=== PATIENT | female | born 2000 | race Caucasian/White ===

== ENCOUNTER 2022-11-25 14:38 | Inpatient (IN) | payer BC, SELFPAY ==
[2022-11-25 14:43] VITALS: BP 127/83; PULSE 81; RESP 16; TEMP 35.7; O2SAT 97; BMI 23.2
--- NOTE | 2022-11-25 14:49 | ED.GENADULT ---
HPI - General Adult General Chief complaint: Psychiatric Symptoms Stated complaint: SI crisis Time Seen by Provider: 11/25/22 15:20 Source: patient Limitations: no limitations History of Present Illness HPI narrative: 22-year-old female with history of psychiatric disorder presents with suicidal ideation and self-harming behavior. Patient was recently discharged for procedure on her neck as post be on Augmentin twice daily. She got home yesterday. Mother of the household noted that she had some self-harming behavior which is cutting on her arm and was concerned about the situation. She admitted to some passive suicidal ideation with no plan. Patient does offer some concern about her impulsivity. She does have a history of substance abuse but nothing actively. Patient describes her symptoms as moderate nature. There is no clear relieving or exacerbating features. Again patient offers passive suicidal ideation with no plan. She has no homicidal ideation. Related Data Home Medications Medication Instructions Recorded Confirmed No Known Home Meds 11/25/22 11/25/22 Allergies Allergy/AdvReac Type Severity Reaction Status Date / Time No Known Allergies Allergy Unverified 01/13/20 18:36 Review of Systems Review of Systems: CONSTITUTIONAL: Denies weight loss, fever and chills. HEENT: Denies changes in vision and hearing. RESPIRATORY: Denies SOB and cough. CV: Denies palpitations no CP. GI: Denies abdominal pain, nausea, vomiting and diarrhea. : Denies dysuria and urinary frequency. MSK: Denies myalgia and joint pain. SKIN: Denies rash and pruritus. NEUROLOGICAL: Denies headache and syncope. PSYCHIATRIC: Denies recent changes in mood. Denies anxiety and depression. All other ROS are negative unless in HPI Physical Exam ED Vital Signs: Vital Signs - 24 hr 11/25/22 14:43 Temperature 96.3 F L Pulse Rate 81 Respiratory Rate 16 Blood Pressure 127/83 Pulse Oximetry 97 BMI result Body Mass Index 23.2 GEN: Well developed, no acute distress, alert, oriented HEENT: Normocephalic, atraumatic, normal external ears, nose appears normal Eyes: Normal to appearance Neck: Supple, no lymphadenopathy Respiratory: Talks in complete sentences, no respiratory distress Extremities: No clubbing cyanosis or edema Neurologic: No focal neurologic deficits, cranial nerves 2-12 intact, gait normal Skin: No rash Course Course Course Narrative: This is an RME: Additional HPI, ROS, PE not included below will be deferred to primary provider. 22-year-old female presents with suicidal thoughts for her entire life, worsening over the past few days, no particular plan. Patient has been cutting her left wrist. Has superficial lacerations to left wrist. Denies hallucinations. Denies drugs, alcohol tobacco. Here with a friend Physical exam with superficial lacerations to left upper extremities. Plan med clearance Reevaluation(s) Reevaluation #1: The patient is awaiting medical clearance at this time. Some of her lab work is still pending. I have ordered her Augmentin twice daily. I will sign the patient out to my colleague for further monitoring pending a disposition by our care team. Time: 16:31 Medical Decision Making Medical Decision Making MDM Narrative: 22-year-old female presents for psychiatric evaluation. Patient has suicidal ideation without a plan. She has initiated self harming behavior namely cutting of her left arm. She does offer concerns about her impulsivity. Patient will need to be medically cleared followed by psychiatric evaluation. Differential diagnosis includes mood disorder, psychosis, schizoaffective disorder, schizophrenia, depression, anxiety, mood disorder, personality disorder. Differential Diagnosis Differential Diagnoses: The differential diagnosis associated with the presentation includes (See above) Admission/Observation Consideration of admission/observation: Escalation of care including admission/observation considered Lab Data 11/25/22 16:03 11/25/22 16:03 Labs: Lab Results 11/25/22 11/25/22 11/25/22 Range/Units 15:42 15:42 15:42 WBC (4.8-10.8) X10*3/uL RBC (4.20-5.50) X10*6/uL Hgb (12.0-16.0) g/dl Hct (37.0-47.0) % MCV (80.0-98.0) fL MCH (27.0-33.0) pg MCHC (31.0-35.0) g/dl RDW (11.0-16.0) % Plt Count (160-400) X10*3/uL MPV (9.4-12.3) fL Immature Gran % (Auto) (0.0-0.4) % Neut % (Auto) (45-73) % Lymph % (Auto) (20-40) % Antelope % (Auto) (2-11) % Eos % (Auto) (0-4) % Baso % (Auto) (0-2) % Lymph # (Auto) (1.2-4.9) X10*3/uL Antelope # (Auto) (0.1-1.2) X10*3/uL Eos # (Auto) (0.0-0.4) X10*3/uL Baso # (Auto) (0.0-0.2) X10*3/uL Abs Immat Gran (auto) (0.00-0.03) X10*3/uL Absolute Neuts (auto) (2.0-8.3) x10*3/uL Absolute Nucleated RBC (0.0-0.012) X10*3/uL Nucleated RBC % (auto) (0.0-0.2) /100WBC Urine Color Yellow Urine Appearance Cloudy Urine pH 7.5 (5.0-9.0) Ur Specific [place] 1.020 (1.005-1.025) Urine Protein Negative (Neg-Trace) mg/dL Urine Glucose (UA) Negative (Negative) mg/dL Urine Ketones Negative (Negative) mg/dL Urine Blood Negative (Negative) Urine Nitrite Negative (Negative) Ur Leukocyte Esterase Negative (Negative) Urine Test NEGATIVE (NEGATIVE) Urine Opiates Screen Not Detected (Not Detect) Urine Fentanyl Screen Not Detected (Not Detect) Ur Barbiturates Screen Not Detected (Not Detect) Ur Phencyclidine Scrn Not Detected (Not Detect) Ur Amphetamines Screen Not Detected (Not Detect) U Benzodiazepines Scrn Not Detected (Not Detect) Urine Cocaine Screen Not Detected (Not Detect) U Marijuana (THC) Screen POSITIVE H (Not Detect) 11/25/22 Range/Units 16:03 WBC 12.5 H (4.8-10.8) X10*3/uL RBC 4.54 (4.20-5.50) X10*6/uL Hgb 12.7 (12.0-16.0) g/dl Hct 40.5 (37.0-47.0) % MCV 89.2 (80.0-98.0) fL MCH 28.0 (27.0-33.0) pg MCHC 31.4 (31.0-35.0) g/dl RDW 13.2 (11.0-16.0) % Plt Count 365 (160-400) X10*3/uL MPV 9.0 L (9.4-12.3) fL Immature Gran % (Auto) 0.5 H (0.0-0.4) % Neut % (Auto) 77.5 H (45-73) % Lymph % (Auto) 17.8 L (20-40) % Antelope % (Auto) 2.9 (2-11) % Eos % (Auto) 0.8 (0-4) % Baso % (Auto) 0.5 (0-2) % Lymph # (Auto) 2.2 (1.2-4.9) X10*3/uL Antelope # (Auto) 0.4 (0.1-1.2) X10*3/uL Eos # (Auto) 0.1 (0.0-0.4) X10*3/uL Baso # (Auto) 0.1 (0.0-0.2) X10*3/uL Abs Immat Gran (auto) 0.06 H (0.00-0.03) X10*3/uL Absolute Neuts (auto) 9.7 H (2.0-8.3) x10*3/uL Absolute Nucleated RBC 0.000 (0.0-0.012) X10*3/uL Nucleated RBC % (auto) 0.0 (0.0-0.2) /100WBC Urine Color Urine Appearance Urine pH (5.0-9.0) Ur Specific [place] (1.005-1.025) Urine Protein (Neg-Trace) mg/dL Urine Glucose (UA) (Negative) mg/dL Urine Ketones (Negative) mg/dL Urine Blood (Negative) Urine Nitrite (Negative) Ur Leukocyte Esterase (Negative) Urine Test (NEGATIVE) Urine Opiates Screen (Not Detect) Urine Fentanyl Screen (Not Detect) Ur Barbiturates Screen (Not Detect) Ur Phencyclidine Scrn (Not Detect) Ur Amphetamines Screen (Not Detect) U Benzodiazepines Scrn (Not Detect) Urine Cocaine Screen (Not Detect) U Marijuana (THC) Screen (Not Detect) Prescription Management I considered prescription management with: Antibiotic Discharge Plan Discharge Clinical Impression: Suicidal ideation, Self-inflicted laceration of wrist Patient Disposition: Still a Patient Prescriptions: No Action No Known Home Meds Interventions: [place]-Suicide Risk Severity Scale Last Done: 11/25/22 16:16
--- NOTE | 2022-11-25 15:48 | MHC.CARE ---
Pt was seen by [facility] and is a inpatient bedsearch
[2022-11-25 15:54] LABS: Appearance Urine Cloudy; Color Urine Yellow; Glucose Urine UA Negative (Negative); Leukocyte Esterase Urine Negative (Negative); Nitrite Urine Negative (Negative); PH 7.5 (5.0-9.0); Urine Blood Negative (Negative); Urine Ketones Negative (Negative); Urine Protein Negative (Neg-Trace)
[2022-11-25 15:55] LABS: UPreg QC Valid YES; Urine Pregnancy NEGATIVE (NEGATIVE)
[2022-11-25 16:02] LABS: Amphetamine Screen Urine Not Detected (Not Detect); Barbiturates, Urine Not Detected (Not Detect); Benzodiazepines Screen Urine Not Detected (Not Detect); Cannabinoid Screen Urine POSITIVE (Not Detect); Cocaine Screen Urine Not Detected (Not Detect); Fentanyl, urine Not Detected (Not Detect); Opiate Screen Urine Not Detected (Not Detect); Phencyclidine Screen Urine Not Detected (Not Detect)
[2022-11-25 16:10] LABS: MANUAL DIFF FLAG NO
[2022-11-25 16:12] LABS: Basophils Absolute Auto 0.1 X10*3/uL (0.0-0.2); Basophils Percent Auto 0.5 % (0-2); Eosinophils Absolute Auto 0.1 X10*3/uL (0.0-0.4); Eosinophils Percent Auto 0.8 % (0-4); Hematocrit 40.5 % (37.0-47.0); Hemoglobin 12.7 g/dl (12.0-16.0); Imm Gran Abs Auto 0.06 X10*3/uL (0.00-0.03); Imm Gran Pct Auto 0.5 % (0.0-0.4); Lymphocytes Absolute Auto 2.2 X10*3/uL (1.2-4.9); Lymphocytes Percent Auto 17.8 % (20-40); Mean Corpuscular HGB Conc 31.4 g/dl (31.0-35.0); Mean Corpuscular Volume 89.2 fL (80.0-98.0); Monocytes Absolute Auto 0.4 X10*3/uL (0.1-1.2); Monocytes Percent Auto 2.9 % (2-11); Neutrophils Absolute Auto 9.7 x10*3/uL (2.0-8.3); Neutrophils Percent Auto 77.5 % (45-73); Platelet Count 365 X10*3/uL (160-400); Red Blood Count 4.54 X10*6/uL (4.20-5.50); Red Cell Distribution Width 13.2 % (11.0-16.0); White Blood Count 12.5 X10*3/uL (4.8-10.8)
[2022-11-25] MEDS: Diphth,Pertus(ACell),Tet Adult 0.5 ML SYRINGE IM (16:28)
[2022-11-25 16:33] LABS: Ethanol < 10 mg/dL
[2022-11-25 16:34] LABS: Alanine Aminotransferase 18 U/L (0-31); Albumin Level 4.4 g/dL (3.5-5.0); Alkaline Phosphatase 93 U/L (39-117); Anion Gap 15 (12-20); Aspartate Amino Transferase 17 U/L (5-31); Bilirubin Total 0.6 mg/dL (0.0-1.0); Blood Urea Nitrogen 18 mg/dL (9-16); Calcium 10.3 mg/dL (8.4-10.2); Carbon Dioxide 25 mmol/L (22-29); Chloride 105 mmol/L (96-108); Creatinine Clr Calc Pharmacy 87.9; Estimated Glomerular Filt Rate > 60; Glucose Random 87 mg/dL (60-115); Magnesium 2.1 mg/dL (1.6-2.6); Potassium 4.4 mmol/L (3.3-5.1); Sodium 141 mmol/L (135-145); Total Protein 8.1 g/dL (6.5-8.0)
[2022-11-25 16:37] LABS: Acetaminophen LAB < 17 mcg/mL (<30); Salicylate < 5.0 mg/dL (15-30)
--- OUTSIDE RECORDS SUMMARY | 2022-11-25 16:42 | XMS_ITS | Continuity of Care Document ---
Author Name Unknown Address [address] [place] [address] Phone [facility] Address [address] [place] [address] Phone Care Team Providers Care Home Service Advisor Name Role Phone Pcp-MD Magdalena Traylor Primary Care Provider Unavailabl e Hospitalist, Model (IS ONLY) Emergency Provider Unavailable MD Andrews Bates Attending Provider MD Santy, Yolis Other Provider Unavailable Chief Complaint and Reason for Visit Chief Complaint SIALAODENITIS ON THE LEFT Reason for Visit Abscess Sialadenitis Streptococcal pharyngitis Suppurative lymphadenitis Allergies, Adverse Reactions, Alerts Allergen Type Severity Reaction Last Updated Verified Status latex Allergy Rash November 09, 2022 4:19pm Yes A ctive Social History Smoking Status Status Start Date End Date Date of Observa tion Unknown if ever smoked November 10, 2022 9:38am Observation Status Date of Observation Not November 09, 2022 Additional Data Assigned Sex Female Problems Active Problems Medical Problem Onset Date Status Suppurative lymphadenitis Active Abscess Active Sialadenitis Active Streptococcal pharyngitis Active Medications No known medications Procedures Procedure Date Performed Status CT facial bones w contrast November 09, 2022 4:52p m active Blood Culture active Group A Streptococcus DNA Detection completed Relevant Diagnostic Tests and/or Laboratory Data Laboratory Results Test Date/Time Result Interpretation Reference Range Result Comment Performing Site White Blood Count November 10, 2022 6:45am 20.6 X10 3/uL 4.5-11.0 [facility] [id number] [address] [place] [address] 61796 Red Blood Count November 10, 2022 6:45am 4.55 X10 6/uL 3.70-5.00 [facility] [id number] [address] [place] [address] 03536 Hemoglobin November 10, 2022 6:45am 13.3 g/dl 11.0-16.0 [facility] [id number] [address] [place] [address] 15075 Hematocrit November 10, 2022 6:45am 41.4 % 34.0-45.0 [facility] [id number] [address] [place] [address] 31928 Mean Corpuscular Volume November 10, 2022 6:45am 91.0 fl 80.0-100.0 [facility] [id number] [address] [place] [address] 96188 Mean Corpuscular Hemoglobin November 10, 2022 6:45am 29.2 pg 27.0-34.0 [facility] [id number] [address] [place] [address] 68480 Mean Corpuscular Hemoglobin Concent November 10, 2022 6:45am 32.1 g/dl 31.0-36.0 [facility] [id number] [address] [place] [address] 16968 Red Cell Distribution Width November 10, 2022 6:45am 13.3 % 11.5-15.0 [facility] [id number] [address] [place] [address] 26029 Platelet Count November 10, 2022 6:45am 278 X10 3/uL 150-400 [facility] [id number] [address] [place] [address] 31707 Immature Granulocyte % (Auto) November 10, 2022 6:45am 0.6 % [facility] [id number] [address] [place] [address] 81825 Neutrophils (%) (Auto) November 10, 2022 6:45am 93.6 % [facility] [id number] [address] [place] [address] 59495 Lymphocytes (%) (Auto) November 10, 2022 6:45am 2.9 % [place] [id number] [address] [place] [address] 28831 Monocytes (%) (Auto) November 10, 2022 6:45am 2.7 % [place] [id number] [address] [place] [address] 24104 Eosinophils (%) (Auto) November 10, 2022 6:45am 0.0 % [address] [place] [address] 37550 Basophils (%) (Auto) November 10, 2022 6:45am 0.2 % [place] [id number] [place] [address] 59903 Immature Granulocyte # (Auto) November 10, 2022 6:45am 0.13 X10 3/uL 0.00-0.09 [address] [place] [address] 90945 Neutrophils # (Auto) November 10, 2022 6:45am 19.3 X10 3/uL 1.5-7.8 [place] [id number] [address] [place] [address] 02679 Lymphocytes # (Auto) November 10, 2022 6:45am 0.6 X10 3/uL 1.0-4.8 [place] [id number] [address] [place] [address] 50722 Monocytes # (Auto) November 10, 2022 6:45am 0.6 X10 3/uL 0.0-0.8 [place] [id number] [address] [place] [address] 98701 Eosinophils # (Auto) November 10, 2022 6:45am 0.0 X10 3/uL 0.0-0.5 [place] [id number] [place] [address] 23150 Basophils # (Auto) November 10, 2022 6:45am 0.0 X10 3/uL 0.0-0.2 [place] [id number] [address] [place] [address] 25441 Nucleated Red Blood Cells % November 10, 2022 6:45am 0.1 /100 WBC 0.0-0.0 WBC corrected due to NRBC [facility] [id number] [address] [place] [address] 85911 Prothrombin Time November 09, 2022 5:13pm 10.5 Seconds 9.3-12.1 [facility] [id number] [address] [place] [address] 53090 Prothromb Time International Ratio November 09, 2022 5:13pm 1.0 0.9-1.2 Reference Interval is for non-anticoagul ated patients.Sugge sted INR Therapeutic Range for Vitamin K antogonist therapy:LEVELS OF THERAPY INDICATIONS TARGET INR RANGEStandard Dose Venous Thrombosis, 2.0 - 3.0 Atrial Fibrillation, Pulmonary Embolism. High Dose Valvular Heart Disease, 2.5 - 3.5 Mechanical Heart, Intracardiac Thrombosis. [facility] [id number] [address] [place] [address] 31880 Sodium Level November 10, 2022 6:45am 138 mmol/L 137-146 [facility] [id number] [address] [place] [address] 00823 Potassium Level November 10, 2022 6:45am 3.8 mmol/L 3.5-5.3 [facility] [id number] [address] [place] [address] 04756 Chloride Level November 10, 2022 6:45am 103 mmol/L 98-107 [facility] [id number] [address] [place] [address] 45490 Carbon Dioxide Level November 10, 2022 6:45am 21 mmol/L - [facility] [id number] [address] [place] [address] 94015 Anion Gap November 10, 2022 6:45am 14 mmol/L 09-09 [facility] [id number] [address] [place] [address] 21309 Blood Urea Nitrogen November 10, 2022 6:45am 9 mg/dl 09-19 [facility] [id number] [address] [place] [address] 81873 Creatinine November 10, 2022 6:45am 0.6 mg/dL 0.5-1.1 [facility] [id number] [address] [place] [address] 24434 Estimated Creatinine Clearance November 10, 2022 6:45am 114.3 ml/min This value is calculated by Cockcroft Gault Equation using ideal body weight. This result is dependent on an accurate patient height and weight which is obtained from patients medical record. Jareth Mcmahon. and M.H. Dena. Prediction of creatinine clearance from serum creatinine. Nephron. 1976. 16(1):31-41. [facility] [id number] [address] [place] [address] 87820 Estimat Glomerular Filtration Rate November 10, 2022 6:45am 128 >90 Reported eGFR is based on the CKD-EPI 2020 equation that does not use a race coefficient. Additional information can be found at:[id number]_ [email or web address] ([email or web address]) [facility] [id number] [address] [place] [address] 13147 BUN/Creatinine Ratio November 10, 2022 6:45am 15.0 10.0-20.0 [facility] [id number] [address] [place] [address] 21307 Glucose Level November 10, 2022 6:45am 120 mg/dL 70-100 [facility] [id number] [address] [place] [address] 50195 Lactic Acid Level November 09, 2022 5:13pm 1.0 mmol/L >0.5 [facility] [id number] [address] [place] [address] 18845 Calcium Level November 10, 2022 6:45am 9.4 mg/dl 8.6-10.3 [facility] [id number] [address] [place] [address] 62094 Total Bilirubin November 09, 2022 5:13pm 0.9 mg/dl <1.1 [place] [id number] [address] [place] [address] 21963 Aspartate Amino Transf (AST/SGOT) November 09, 2022 5:13pm 17 U/L 15-41 [facility] [id number] [address] [place] [address] 52728 Alanine Aminotransferase (ALT/SGPT) November 09, 2022 5:13pm 12 U/L 14-54 [facility] [id number] [address] [place] [address] 43713 Total Protein November 09, 2022 5:13pm 8.6 g/dL 6.4-8.3 [facility] [id number] [address] [place] [address] 86999 Albumin November 09, 2022 5:13pm 4.9 g/dl 4.0-5.0 [facility] [id number] [address] [place] [address] 86217 Albumin/Globulin Ratio November 09, 2022 5:13pm 1.3 1.0-2.6 [facility] [id number] [address] [place] [address] 36619 Alkaline Phosphatase November 09, 2022 5:13pm 109 U/L 35-104 [facility] [id number] [address] [place] [address] 76305 Human Chor Gonadotropin, Qual (Ser) November 09, 2022 5:13pm Negative Negative This is only a screening test. Low HCG serum level (<10 mIU/ml), in cases of early or hemodilution by over hydration, may not be detected with this test. Also high concentration of certain drugs may interfere. If suspicious of early or clinically necessary to confirm, a serum Beta-HCG quantitation test is suggested. [facility] [id number] [address] [place] [address] 73474 Microbiology Results Procedure Source Result Collection Date/Time Result Date/Time Result Comment Performing Site Group A Streptococcus DNA Detection Throat November 09, 2022 5:20pm [facility] [id number] [address] [place] [address] 21433 Vital Signs Vital Reading Result Reference Range Collection Date/Time Height 157.48 cm November 09, 2022 4:20pm Weight 56.24 kg November 09, 2022 4:20pm Body Temperature 97.8 [degF] 97.6-99.6 November 10, 2022 4:11pm Heart Rate 93 /min 60-90 November 10, 2022 4:11pm Respiratory rate 18 /min 12-24 November 10, 2022 4:11pm Oxygen saturation by Pulse oximetry 100 % 95-100 November 10, 2022 4:11 pm BP Systolic 107 mm[Hg] 90-140 November 10, 2022 4:11pm BP Diastolic 60 mm[Hg] 60-90 November 10, 2022 4:11pm BMI (Body Mass Index) 22.7 kg/m2 October 262022 4:20pm Advance Directives Advance Directive Response Recorded Date/ Time Advance Directives No November 09 6:17pm Health Care Proxy No November 09 6:17pm Insurance Providers Guarantor RAJEEV CRAVEN Address [address] [place] [address] Contact Info. Home Phone: Payer Policy Id Coverage Id Subscriber's Name Subscriber Id Effective Date Expiration Date [facility] (Medicaid) [id number] RAJEEV CRAVEN [id number] [facility] Required [id number] RAJEEV CRAVEN [id number] Encounters Encounter Location(s) Arrival/Admit Date Discharge/Depart Date Provider(s) Admitted Inpatient [facility] Inpatient November 10, 2022 4:44am Andrews Bates MD Recent Diagnosis Onset Date Abscess Sialadenitis Streptococcal pharyngitis Suppurative lymphadenitis Assessments Diagnosis Onset Date Resolution Status Abscess acute Sialadenitis acute Streptococcal pharyngitis [place] Suppurative lymphadenitis [place] Plan of Treatment Future Tests Future scheduled test information is unavailable Pending Tests Test Name Ordered Date Scheduled Date CT facial bones w contrast November 09, 2022 4:52p m November 09, 2022 4:52pm MRSA Nares PCR November 10, 2022 7:09pm October 7:09pm Vancomycin,Trough November 10, 2022 7:07pm November 122022 6:00am VTE Risk Assessment Medical November 10, 2022 4:44 am November 10, 2022 4:44am Future Visits Future appointment information is unavailable Referrals to Other Providers Referral information is unavailable Future Procedures Procedure Name Ordered Date Scheduled Date Hospital Level of Care November 10, 2022 4:44am Ju ly 2022 4:44am Basic Metabolic Panel November 10, 2022 4:44am Vladimir y 2022 6:00am Complete Blood Count Auto Diff November 10, 2022 4 :44am November 11, 2022 6:00am Code Status November 10, 2022 4:44am October 4:44am Creatinine November 10, 2022 7:07pm October 6:00am Creatinine November 10, 2022 7:07pm October 6:00am Creatinine November 10, 2022 7:07pm October 6:00am ED Transfer of Care to Adm Physician November 10, 2022 5:00am November 10, 2022 5:00am ENT Consult November 10, 2022 4:53am October 4:53am Saline Lock Insert/Manage November 09, 2022 4:28pm November 09, 2022 4:28pm Patient Preference for Pain Management October 4:44am November 10, 2022 4:44am Sequential Compression Device November 10, 2022 4: 44am November 10, 2022 4:44am Future Medications Future medication information is unavailable Patient Instructions Patient instructions are unavailable
--- OUTSIDE RECORDS SUMMARY | 2022-11-25 16:42 | XMS_ITS | Continuity of Care Document ---
Author Name Unknown Address [address] [place] [address] Phone [facility] Address [address] [place] [address] Phone Care Team Providers Care Mental Health Orderly Name Role Phone Pcp-MD Manuel Traylor Primary Care Provider Unavailabl e Hospitalist, Model (IS ONLY) Emergency Provider Unavailable MD [place] Other Provider Unavailable MD Benjie Deal Attending Provider [phone] [facility] Provider Chief Complaint and Reason for Visit Chief Complaint SIALAODENITIS ON THE LEFT Reason for Visit Sialadenitis Streptococcal infection group A Streptococcal pharyngitis Suppurative lymphadenitis Allergies, Adverse Reactions, Alerts Allergen Type Severity Reaction Last Updated Verified Status latex Allergy Rash November 09, 2022 4:19pm Yes A ctive Social History Smoking Status Status Start Date End Date Date of Observa tion Unknown if ever smoked November 11, 2022 3:51pm Observation Status Date of Observation Not November 14, 2022 Observation Status Observation Response Date of Response Lives With Friend November 11, 2022 3:51pm Is Anyone Dependent on your Care? No November 10, 2022 8:55pm Living Situation Private Home November 10, 2022 8:55pm Additional Data Assigned Sex Female Problems Active Problems Medical Problem Onset Date Status Suppurative lymphadenitis Active Streptococcal infection group A Active Sialadenitis Active Streptococcal pharyngitis Active Medications Medication Status Dose Units Route Directions Qty Days St art Date End Date Instructions Amoxicillin-Po t Clavulanate (Augmentin) 500-125 mg Tablet Active 1 TAB PO EVERY 12 HOURS 28 14 November 18, 2022 12:00am Procedures Procedure Date Performed Status CT facial bones w contrast November 09, 2022 4:52p m completed US guide cyst aspiration November 11, 2022 11:41am completed CT facial bones w contrast November 14, 2022 12:51 pm completed Gram Stain completed Abscess Culture active Blood Culture completed Gram Stain completed Body Fluid Culture completed MRSA Screen completed Methicillin-Resist S. Aureus (PCR) cancelled Methicillin-Resist S. Aureus (PCR) cancelled Abscess I & D (Not Applicable) November 15, 2022 9 :19am completed Relevant Diagnostic Tests and/or Laboratory Data Laboratory Results Test Date/Time Result Interpretation Reference Range Result Comment Performing Site Add-On Test Request November 13, 2022 11:53am Added test [facility] [id number] [address] [place] [address] 27667 White Blood Count November 17, 2022 5:30am 8.7 X10 3/uL 4.5-11.0 [facility] [id number] [address] [place] [address] 75356 Red Blood Count November 17, 2022 5:30am 3.51 X10 6/uL 3.70-5.00 [facility] [id number] [address] [place] [address] 20110 Hemoglobin November 17, 2022 5:30am 10.0 g/dl 11.0-16.0 [facility] [id number] [address] [place] [address] 55520 Hematocrit November 17, 2022 5:30am 31.5 % 34.0-45.0 [facility] [id number] [address] [place] [address] 40870 Mean Corpuscular Volume November 17, 2022 5:30am 89.7 fl 80.0-100.0 [facility] [id number] [address] [place] [address] 18088 Mean Corpuscular Hemoglobin November 17, 2022 5:30am 28.5 pg 27.0-34.0 [facility] [id number] [address] [place] [address] 83480 Mean Corpuscular Hemoglobin Concent November 17, 2022 5:30am 31.7 g/dl 31.0-36.0 [facility] [id number] [address] [place] [address] 05924 Red Cell Distribution Width November 17, 2022 5:30am 12.4 % 11.5-15.0 [facility] [id number] [address] [place] [address] 01972 Platelet Count November 17, 2022 5:30am 322 X10 3/uL 150-400 [facility] [id number] [address] [place] [address] 69469 Immature Granulocyte % (Auto) November 17, 2022 5:30am 0.8 % [facility] [id number] [address] [place] [address] 41414 Neutrophils (%) (Auto) November 17, 2022 5:30am 61.6 % [facility] [id number] [address] [place] [address] 34399 Lymphocytes (%) (Auto) November 17, 2022 5:30am 26.0 % [facility] [id number] [address] [place] [address] 85549 Monocytes (%) (Auto) November 17, 2022 5:30am 7.8 % [facility] [id number] [address] [place] [address] 04601 Eosinophils (%) (Auto) November 17, 2022 5:30am 3.2 % [facility] [id number] [address] [place] [address] 32421 Basophils (%) (Auto) November 17, 2022 5:30am 0.6 % [facility] [id number] [address] [place] [address] 56787 Immature Granulocyte # (Auto) November 17, 2022 5:30am 0.07 X10 3/uL 0.00-0.09 [facility] [id number] [address] [place] [address] 35223 Neutrophils # (Auto) November 17, 2022 5:30am 5.4 X10 3/uL 1.5-7.8 [facility] [id number] [address] [place] [address] 44604 Lymphocytes # (Auto) November 17, 2022 5:30am 2.3 X10 3/uL 1.0-4.8 [place] [id number] [address] [place] [address] 20116 Monocytes # (Auto) November 17, 2022 5:30am 0.7 X10 3/uL 0.0-0.8 [place] [facility] [id number] [address] [place] [address] 51118 Eosinophils # (Auto) November 17, 2022 5:30am 0.3 X10 3/uL 0.0-0.[address] [facility] [id number] [place] [address] 90407 Basophils # (Auto) November 17, 2022 5:30am 0.1 X10 3/uL 0.0-0.2 [place] [facility] [id number] [address] [place] [address] 89973 Erythrocyte Sedimentation Rate November 16, 2022 5:20am 54 mm/hr 0-20 [place] [id number] [address] [place] [address] 61566 Nucleated Red Blood Cells % November 17, 2022 5:30am 0.0 /100 WBC 0.0-0.0 [facility] [id number] [address] [place] [address] 29570 Prothrombin Time November 09, 2022 5:13pm 10.5 Seconds 9.3-12.1 [facility] [id number] [address] [place] [address] 94470 Prothromb Time International Ratio November 09, 2022 5:13pm 1.0 0.9-1.2 Reference Interval is for non-anticoagul ated patients.Sugge sted INR Therapeutic Range for Vitamin K antogonist therapy:LEVELS OF THERAPY INDICATIONS TARGET INR RANGEStandard Dose Venous Thrombosis, 2.0 - 3.0 Atrial Fibrillation, Pulmonary Embolism. High Dose Valvular Heart Disease, 2.5 - 3.5 Mechanical Heart, Intracardiac Thrombosis. [facility] [id number] [address] [place] [address] 96496 Sodium Level November 17, 2022 5:30am 140 mmol/L 137-146 [place] [id number] [address] [place] [address] 90441 Potassium Level November 17, 2022 5:30am 4.0 mmol/L 3.5-5.3 [facility] [id number] [address] [place] [address] 60884 Chloride Level November 17, 2022 5:30am 104 mmol/L 98-107 [facility] [id number] [address] [place] [address] Carbon Dioxide Level November 17, 2022 5:30am 28 mmol/L -32 [facility] [id number] [address] [place] [address] 97022 Anion Gap November 17, 2022 5:30am 8 mmol/L - [place] [id number] [address] [place] [address] 13538 Blood Urea Nitrogen November 17, 2022 5:30am 4 mg/dl - [facility] [id number] [address] [place] [address] Creatinine November 17, 2022 5:30am 0.6 mg/dL 0.5-1.1 [facility] [id number] [address] [place] [address] 34904 Estimated Creatinine Clearance November 17, 2022 5:30am 114.3 ml/min This value is calculated by Cockcroft Gault Equation using ideal body weight. This result is dependent on an accurate patient height and weight which is obtained from patients medical record. Cockcroft, D.W. and M.H. Gault. Prediction of creatinine clearance from serum creatinine. Nephron. 1976. 16(1):31-41. [facility] [id number] [address] [place] [address] 00315 Estimat Glomerular Filtration Rate November 17, 2022 5:30am 128 >90 Reported eGFR is based on the CKD-EPI 2020 equation that does not use a race coefficient. Additional information can be found at:[id number]_ [email or web address] ([email or web address]) [facility] [id number] [address] [place] [address] 54044 BUN/Creatinine Ratio November 17, 2022 5:30am 6.7 10.0-20.0 [facility] [id number] [address] [place] [address] 80553 Glucose Level November 17, 2022 5:30am 76 mg/dL 70-100 [facility] [id number] [address] [place] [address] 84420 Lactic Acid Level November 09, 2022 5:13pm 1.0 mmol/L >0.5 [facility] [id number] [address] [place] [address] 59916 Calcium Level November 17, 2022 5:30am 8.9 mg/dl 8.6-10.3 [facility] [id number] [address] [place] [address] 92549 Magnesium Level November 17, 2022 5:30am 1.8 mg/dL 1.8-2.5 [facility] [id number] [address] [place] [address] 06241 Total Bilirubin November 09, 2022 5:13pm 0.9 mg/dl <1.1 [facility] [id number] [address] [place] [address] 63528 Aspartate Amino Transf (AST/SGOT) November 09, 2022 5:13pm 17 U/L 15-41 [facility] [id number] [address] [place] [address] 86505 Alanine Aminotransferase (ALT/SGPT) November 09, 2022 5:13pm 12 U/L 14-54 [facility] [id number] [address] [place] [address] 90540 C-Reactive Protein November 16, 2022 5:20am 6.40 mg/dl <0.50 [facility] [id number] [address] [place] [address] 56788 C-Reactive Protein High Sensitivity November 12, 2022 6:18am 107.0 mg/L 1.0-3.0 [facility] [id number] [address] [place] [address] 44876 Total Protein November 09, 2022 5:13pm 8.6 g/dL 6.4-8.3 [facility] [id number] [address] [place] [address] 95112 Albumin November 09, 2022 5:13pm 4.9 g/dl 4.0-5.0 [facility] [id number] [address] [place] [address] 67874 Albumin/Globulin Ratio November 09, 2022 5:13pm 1.3 1.0-2.6 [facility] [id number] [address] [place] [address] 12571 Alkaline Phosphatase November 09, 2022 5:13pm 109 U/L 35-104 [facility] [id number] [address] [place] [address] 51410 Human Chor Gonadotropin, Qual (Ser) November 09, 2022 5:13pm Negative Negative This is only a screening test. Low HCG serum level (<10 mIU/ml), in cases of early or hemodilution by over hydration, may not be detected with this test. Also high concentration of certain drugs may interfere. If suspicious of early or clinically necessary to confirm, a serum Beta-HCG quantitation test is suggested. [facility] [id number] [address] [place] [address] 42658 Procalcitonin November 13, 2022 6:34am 0.05 ng/mL <0.10 [facility] [id number] [address] [place] [address] 39641 Vancomycin Level Trough November 13, 2022 6:34am 19.7 ug/mL 10.0-20.0 [facility] [id number] [address] [place] [address] 59484 Microbiology Results Procedure Source Result Collection Date/Time Result Date/Time Result Comment Performing Site Gram Stain Fluid, Other November 11, 2022 9:40pm [facility] [id number] [address] [place] [address] 97787 Body Fluid Culture Fluid, Other Strep pyogenes -group a November 14, 2022 2:26pm [facility] [id number] [address] [place] [address] 02200 Gram Stain Neck November 18, 2022 11:14am [facility] [id number] [address] [place] [address] 88974 MRSA Screen Nares No methicillin- resistant Staph aureus isolated. November 12, 2022 1:29pm [facility] [id number] [address] [place] [address] 94744 Blood Culture Blood NO GROWTH AFTER 5 DAYS November 14, 2022 10:39pm [facility] [id number] [address] [place] [address] 16458 Diagnostic Imaging Reports Report Dictated Date/Time Dictated By Status Radiology Report November 11, 2022 9:01am Azam Gomes MD completed [facility] [address] [place] [address] Patient Name: RAJEEV CRAVEN Medical Record#: [id number] Address: [address] [place] [address] City/State/Zip: [place] [address]: Stepan Bates MD Insurance: Self Pay /Age/Sex: 2000// Admit/Reg Date: 11/10/[address]: Sindy Post MD Location: [address] [place] [address] PCP: Md MANUEL Rodriguez Date of Service: 11/09/22 Order (s): CT facial bones w contrast CPT Code: 08218 Report Number: [id number] Reason for Exam: Left facial swelling MAXILLOFACIAL CT COMPARISON: None available at the time of dictation CLINICAL INFORMATION PROVIDED: Left facial swelling TECHNIQUE: CT scan of the face were performed following the administration of 70 mm of IV contrast.. 3D reconstruction using the same workstation that CT was acquired, performed by the survey technologist was reviewed. FINDINGS: There is enlargement of left submandibular gland with heterogeneous enhancement. There is a 2.3 x 1.5 x 2.2 cm peripherally enhancing hypodense collection in the region of the left submandibular gland, axial image 25 series 2. It measures up to 2.6 cm on sagittal image 21. There is surrounding soft tissue edema. There are surrounding lymph nodes. For example there is anterior to the left submandibular gland ovoid nodule or lymph node measuring 1.0 x 1.9 cm. Enlarged cervical lymph nodes are also seen. There is ill-defined fluid in the left submandibular region along the left floor of the mouth and the sternocleidomastoid muscle suggesting inflammatory change. There is mass effect on the adjacent structures within the left maxillofacial and upper cervical region. There is mild narrowing with left to right shift of the oral pharyngeal airway and subpharyngeal region with inflammation infiltrating into the left neck soft tissues. Paranasal sinuses are clear. IMPRESSION: Enlarged heterogeneous left submandibular gland with a peripherally enhancing hypodense collection suspicious for abscess. No definite ductal calculi demonstrated. There is contiguous inflammation and edema in the left submandibular region along the floor of the mouth, left facial soft tissues, and extending into the left neck soft tissues with mass effect on adjacent structures. Automated exposure control and dose reduction technique were utilized. Findings are in general agreement with the preliminary TRS report. Dictated By: Azam Gomes MD 11/11/22900 Signed By: Azam Gomes MD 11/11/22915 TD/TT: 11/11/22900Tech: [id number] cc: [id number]; [id number]; PCPNO* Andrews Bates MD; Md Jennifer MD; Sindy Post MD Report Dictated Date/Time Dictated By Status Radiology Report November 11, 2022 12:44pm Martha Juan PAC completed [place] [id number] Patient Name: RAJEEV CRAVEN Medical Record#: [id number] Address: [address] [place] [address] City/State/Zip: [place] [address]: Stepan Bates MD Insurance: Self Pay /Age/Sex: 2000/22/ Admit/Reg Date: 11/10/[address]: Andrews Bates MD Location: [address] [place] [address] PCP: Md MANUEL Rodriguez Date of Service: 11/11/22 Order (s): US guide cyst aspiration CPT Code: 98906 Report Number: [id number] Reason for Exam: Left mandibular abscess aspiration US guide cyst aspiration, 11/11/2022 11:42 AM OPERATORS: Martha Juan PAC Dr Penny was the supervising physician for this patient encounter HISTORY: 22-year-old female with left facial swelling status post CT 11/09/2022 demonstrating a left submandibular fluid collection referred for aspiration AIR POLLUTION COMPLIANCE INSPECTOR: Martha Juan PAC Indication: Left submandibular fluid collection suspicious for abscess IMAGING: Limited 2D ultrasound and duplex images were obtained of the left submandibular region measuring approximately 2.9 x 1.1 cm which is targeted for aspiration. PROCEDURE: Informed consent was obtained. Time out confirmed patient and procedure. Following standard prep and local anesthesia a 22-gauge spinal needle placed into the left submandibular fluid collection. Approximately 2 mL of turbid fluid was aspirated. Fluid sent for analysis as ordered. The needle was removed and hemostasis was easily achieved. Patient tolerated the procedure well. There were no immediate complications. Impression: Technically successful paracentesis yielding approximately 2 mL of turbid fluid. Labs pending Dictated By: AVA Polanco 11/11/22 1244 Signed By: Mann Penny MD 11/11/22 1327 TD/TT: 11/11/22 1244Tech: [id number] cc: [id number]; PCPNO* Andrews Bates MD; Md Jennifer MD Report Dictated Date/Time Dictated By Status Radiology Report November 14, 2022 4:43pm Azam Gomes MD completed [facility] [address] [place], [place] [id number] Patient Name: RAJEEV CRAVEN Medical Record#: [id number] Address: [address] [place] [address] City/State/Zip: [place] [address]: Eugenio Deal MD Insurance: Blue Cross (Out o f State) PPO /Age/Sex: 2000/F Self Pay Admit/Reg Date: 11/10/[address]: Benjie Deal MD Location: ./[id number] PCP: Md MANUEL Rodriguez Date of Service: 11/14/22 Order (s): CT facial bones w contrast CPT Code: 82622 Report Number: [id number] Reason for Exam: left neck swelling MAXILLOFACIAL CT COMPARISON: November 11, 2022 CLINICAL INFORMATION PROVIDED: left neck swelling TECHNIQUE: 90 cc of Omnipaque 350 was administered.. 3D reconstruction using the same workstation that CT was acquired, performed by the survey technologist was reviewed. Automated exposure control and dose reduction technique were utilized. FINDINGS: There is a thick-walled collection seen lateral and superior to the left submandibular gland measuring 3.3 x 2.3 x 3.2 cm. This measured approximately 2.2 x 1.4 x 2.4 cm on the prior. There is again noted soft tissue edema which has comparatively decreased. There is heterogeneity of the left submandibular gland. There is again noted mass effect on the adjacent structures with probable improvement of shift to the right of the airway. Enlarged lymph nodes persist with significant adenopathy for example deep to the sternocleidomastoid. The visualized brain parenchyma is stable and unremarkable. The visualized paranasal sinuses demonstrate no significant opacification. Mastoid air cells demonstrate no significant opacification. The carotid arteries are patent. There is mass effect with decrease in flow in the mid left internal jugular vein. Osseous structures are stable. IMPRESSION: Again noted is an enlarged heterogeneous left submandibular gland with adjacent thick-walled peripherally enhancing hypodense collection suggestive of abscess. It does demonstrate interval increase in size compared to the prior study as above. There has been interval decrease in overall surrounding associated edema. Persistent bulky lymphadenopathy is again seen left greater than right. Automated exposure control and dose reduction techniques were utilized. Dictated By: Azam Gomes MD 11/14/221642 Signed By: Azam Gomes MD 11/14/221654 TD/TT: 11/14/221642Tech: [id number] cc: [id number]; PCPBIRDIE* Md Richmond-MD Layton; Benjie Deal MD Vital Signs Vital Reading Result Reference Range Collection Date/Time Height 157.48 cm November 10, 2022 8:55pm Weight 56.24 kg November 10, 2022 8:55pm Body Temperature 98.6 [degF] 97.6-99.6 November 18, 2022 10:03am Heart Rate 68 /min 60-90 November 18, 2022 10:03am Respiratory rate 16 /min 12-November 18, 2022 10:03am Oxygen saturation by Pulse oximetry 100 % 95-100 November 18, 2022 10:0 3am BP Systolic 128 mm[Hg] 90-140 November 18, 2022 10:03am BP Diastolic 78 mm[Hg] 60-90 November 18, 2022 10:03am BMI (Body Mass Index) 22.7 kg/m2 October 262022 8:55pm Advance Directives Advance Directive Response Recorded Date/ Time Advance Directives No November 11 3:51pm Health Care Proxy No November 11 3:51pm Insurance Providers Guarantor RAJEEV CRAVEN Address [address] [place] [address] Contact Info. Home Phone: Payer Policy Id Coverage Id Subscriber's Name Subscriber Id Effective Date Expiration Date Blue Cross (Out of State) PPO [id number] Carlitos Craven [id number] [facility] (Medicaid) [id number] RAJEEV CRAVEN [id number] [facility] Required [id number] RAJEEV CRAVEN [id number] Encounters Encounter Location(s) Arrival/Admit Date Discharge/Depart Date Provider(s) Discharged Inpatient [facility]- November 10, 2022 4:44am November 18, 2022 2:30pm Benjie Deal MD Recent Diagnosis Onset Date Sialadenitis Streptococcal infection group A Streptococcal pharyngitis Suppurative lymphadenitis Functional Status Observation Response Date Recorded Assistive Devices None November 11 3:51pm Ambulation Tolerance [facility] November 18, 2022 1:53am Bathing Type Sponge Bath November 18, 2022 1:53am Date of Last Bowel Movement 11/16/22 November 18, 2022 1:53am Oral Care Teeth Brushing November 18, 2022 1:53am Mental Status Observation Response Date Recorded Arousable To Name November 18, 2022 1:53am Patient Behavior Appropriate November 18, 2022 1:53am Cooperative November 18, 2022 1:53am Comprehension Ability Understands Concepts November 18, 2022 1:53am Level of Consciousness Awake October 1:53am Alert November 18, 2022 1:53am Assessments Diagnosis Onset Date Resolution Status Sialadenitis acute Streptococcal infection group A acute Streptococcal pharyngitis ac sycuan Suppurative lymphadenitis ac sycuan Plan of Treatment Future Tests Future scheduled test information is unavailable Pending Tests Test Name Ordered Date Scheduled Date Fungal Culture November 15, 2022 9:10am VTE Risk Assessment Medical November 10, 2022 4:44 am November 10, 2022 4:44am Future Visits Future appointment information is unavailable Referrals to Other Providers Reason for Referral Referral Start Date Provider Provider Contact Information Provider Address Pcp-None , Md JACKSON Future Procedures Procedure Name Ordered Date Scheduled Date Abscess Culture w/ Gram Stain November 15, 2022 9: 48am November 15, 2022 9:10am Hospital Level of Care November 10, 2022 4:44am Ju ly 2022 4:44am Discharge November 18, 2022 10:47am October 10:47am Smoking Cessation Consult November 10, 2022 11:14p m November 10, 2022 11:14pm Discharge per PACU Criteria November 15, 2022 9:40 am November 15, 2022 9:40am ED Transfer of Care to Adm Physician November 10, 2022 5:00am November 10, 2022 5:00am ENT Consult November 10, 2022 4:53am October 4:53am Infectious Disease Consult November 13, 2022 10:25 am November 13, 2022 10:25am Saline Lock Insert/Manage November 09, 2022 4:28pm November 09, 2022 4:28pm Patient Preference for Pain Management November 10, 2022 4:44am November 10, 2022 4:44am Sequential Compression Device November 10, 2022 4: 44am November 10, 2022 4:44am Future Medications Future medication information is unavailable Patient Instructions When to Use Antibiotics ED Pharyngitis, Strep (Confirmed) ED Pharyngitis, Strep (Presumed) Goals Acute Goals Rajeev Please take Augmentin for at least 14 days. You will need to follow with Dr. Anton at [facility] please call [phone] for a follow up appointment this week. [address] [facility] [address]nd Floor ([address]) [place] [address] Please also see your primary care doctor as an outpatient this week. if you have further swelling in your neck or jaw and have difficulty swalloing or difficulty breathing please return to the emergency department. Thank you Prevention of aspiration Including: - Absence of regurgitation, gagging, coughing, fever, cyanosis and respiratory insufficiency - Aspiration precautions Absence of falls Including: - Early & often mobilization when appropriate - Passive/active range of motion as appropriate - toileting schedule implementation - implementation of fall risk interventions Understand Mgmt Strategy-Kunal smalls Patient/Caregiver understand: - Pathophysiology - Reportable s/s and when to seek medical care - Treatment plan and post discharge follow up - Medication compliance, environmental safety & lifestyle modification Alleviation of anxiety Including: -Utilization of coping skills -Demonstrates/verbalizes decreased anxiety Alteration in Hemodynamics Potential for Infection Potential for Surgical Injur y Risk for Impaired Skin Integ rity Alteration in Respiratory St atus Patient will maintain airway and adequate gas exchange Risk of Altered Thermoregula tion Surgical site healing Including: - Surgical site clean, dry and intact - Absence of redness or drainage - Site care continued as applicable
--- NOTE | 2022-11-25 16:56 | PC.NURSE ---
Kathleen was admitted to bed 1 with passive SI and Superficial lacerations to her L wrist and upper left body. Tetanus given IM. Kathleen is pleasant and cooperative and endorses feeling safe while on the unit. Kathleen had a friend with her from her admission to 1700. She is a bed search by [facility]. Kathleen denies any home medications. Staff will continue to monitor.
--- NOTE | 2022-11-25 17:07 | MHC.CARE ---
Seen by [facility] on community, inpatient bedsearch.
[2022-11-25] MEDS: Amoxicillin/Potassium Clav 875 MG TABLET PO (20:06)
[2022-11-25] MEDS: Acetaminophen 325 MG TABLET 975 MG PO (20:06)
[2022-11-25 20:48] VITALS: BP 116/75; PULSE 75; RESP 17; TEMP 36.6; O2SAT 98
--- NOTE | 2022-11-25 20:55 | MHC.CARE ---
EDWIN Stephenson inquired if this pt is on a section 12. T/W called [facility] and spoke to their final inspection supervisor who informed t/w that the pt is voluntary and can leave if she wants to. SHE IS NOT ON A SEC 12.
[2022-11-25] MEDS: Nicotine 21 MG PATCH.TD24 TRANSDERMA (21:27)
--- NOTE | 2022-11-25 22:16 | MHC.CARE ---
Tw conducted a state wide bed search for this pt. No beds were available. Bed search is exhausted
[2022-11-26 00:44] VITALS: BP 115/66; PULSE 62; RESP 16; TEMP 36.4; O2SAT 99
[2022-11-26] MEDS: LORazepam 1 MG TABLET 2 MG PO ×2 (01:00→13:23)
--- NOTE | 2022-11-26 05:51 | PC.NURSE ---
Patient slept through the night, no distress observed/reported, patient had difficulty sleeping due to racing thought, Ativan 2 mg PO administered @ 0100 with + effect, currently not on any home medication except for Augmentin for the neck surgical procedure, medication compliant, disposition per [facility] is voluntary inpatient bed search, behavior non concerning but mood depressed at time tearful, VSS, will continue to monitor.
[2022-11-26 07:57] VITALS: BP 111/67; PULSE 78; TEMP 37.2; O2SAT 98
[2022-11-26 08:27] LABS: COVID-19 Test Negative (Negative); IDNOW Serial# BCCEAD1C
[2022-11-26] MEDS: Amoxicillin/Potassium Clav 875 MG TABLET PO ×2 (08:29→21:08)
[2022-11-26] MEDS: Nicotine 21 MG PATCH.TD24 TRANSDERMA (10:35)
[2022-11-26 18:20] VITALS: BP 121/76; PULSE 89; RESP 18; TEMP 36.6; O2SAT 100
[2022-11-26] MEDS: hydrOXYzine HCL 25 MG TABLET PO (19:17)
[2022-11-26] MEDS: traZODone HCL 50 MG TABLET PO (21:08)
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
[2022-11-27] MEDS: Amoxicillin/Potassium Clav 875 MG TABLET PO ×2 (08:47→20:33)
[2022-11-27] MEDS: Acetaminophen 325 MG TABLET 650 MG PO ×2 (08:50→20:33)
[2022-11-27 09:11] LABS: Estimated Average Glucose 88 mg/dL; Hemoglobin A1c % 4.7 %
[2022-11-27 09:14] VITALS: BP 123/75; PULSE 97; RESP 18; TEMP 36.1; O2SAT 100
[2022-11-27 09:25] LABS: Cholesterol 205 mg/dL; HDL Cholesterol 48 mg/dL; LDL Cholesterol Calculated 122 mg/dl; Triglycerides 178 mg/dL
[2022-11-27 09:40] LABS: TSH reflex Free T4 1.51 uIU/mL (0.32-4.0)
[2022-11-27] MEDS: Nicotine 21 MG PATCH.TD24 TRANSDERMA (10:52)
[2022-11-27] MEDS: Nicotine Polacrilex 2 MG GUM 4 MG BUCCAL (12:04)
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
[2022-11-27] MEDS: hydrOXYzine HCL 25 MG TABLET PO (18:29)
[2022-11-27] MEDS: lamoTRIgine 25 MG TABLET 50 MG PO (20:33)
[2022-11-27 20:35] VITALS: BP 124/83; PULSE 93; RESP 18; TEMP 36.6
[2022-11-27] MEDS: traZODone HCL 50 MG TABLET PO ×2 (22:08→23:15)
[2022-11-28] MEDS: hydrOXYzine HCL 25 MG TABLET PO ×2 (00:47→14:47)
[2022-11-28] MEDS: Amoxicillin/Potassium Clav 875 MG TABLET PO ×2 (08:29→20:17)
[2022-11-28] MEDS: buPROPion HCL 75 MG TABLET PO (08:30)
[2022-11-28] MEDS: Nicotine 21 MG PATCH.TD24 TRANSDERMA (08:31)
[2022-11-28 09:38] VITALS: BP 107/63; PULSE 102; RESP 16; TEMP 35.8; O2SAT 98
[2022-11-28] MEDS: Nicotine Polacrilex Lozenge 4 MG LOZENGE BUCCAL ×2 (11:34→20:17)
[2022-11-28 11:57] VITALS: BMI 22.7
[2022-11-28] MEDS: QUEtiapine Fumarate 25 MG TABLET PO ×2 (12:58→17:36)
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
[2022-11-28 18:00] VITALS: BP 127/75; PULSE 113; RESP 18; TEMP 36.9; O2SAT 99
[2022-11-28] MEDS: lamoTRIgine 25 MG TABLET 50 MG PO (20:17)
[2022-11-28] MEDS: QUEtiapine Fumarate 50 MG TABLET PO (20:17)
[2022-11-28] MEDS: Melatonin 3 MG TABLET 6 MG PO (20:17)
[2022-11-29] MEDS: Acetaminophen 325 MG TABLET 650 MG PO ×2 (06:14→14:14)
[2022-11-29] MEDS: Nicotine Polacrilex Lozenge 4 MG LOZENGE BUCCAL (06:53)
[2022-11-29] MEDS: Amoxicillin/Potassium Clav 875 MG TABLET PO ×2 (08:14→20:25)
[2022-11-29] MEDS: buPROPion HCL 75 MG TABLET PO (08:14)
[2022-11-29] MEDS: Nicotine 21 MG PATCH.TD24 TRANSDERMA (08:16)
[2022-11-29 08:21] VITALS: BP 123/84; PULSE 89; RESP 18; TEMP 36.4; O2SAT 98
[2022-11-29] MEDS: QUEtiapine Fumarate 25 MG TABLET PO ×2 (09:49→18:46)
[2022-11-29] MEDS: OLANZapine 2.5 MG TABLET PO ×2 (11:57→14:58)
[2022-11-29 18:00] VITALS: BP 113/70; PULSE 104; RESP 16; TEMP 36.6; O2SAT 99
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
[2022-11-29] MEDS: lamoTRIgine 25 MG TABLET 50 MG PO (20:25)
[2022-11-29] MEDS: Melatonin 3 MG TABLET 6 MG PO (20:25)
[2022-11-29] MEDS: QUEtiapine Fumarate 50 MG TABLET PO (20:51)
[2022-11-30] MEDS: Acetaminophen 325 MG TABLET 650 MG PO (06:58)
[2022-11-30] MEDS: Amoxicillin/Potassium Clav 875 MG TABLET PO (08:08)
[2022-11-30] MEDS: buPROPion HCL 75 MG TABLET PO (08:08)
[2022-11-30] MEDS: Nicotine 21 MG PATCH.TD24 TRANSDERMA (08:09)
[2022-11-30] MEDS: Nicotine Polacrilex Lozenge 4 MG LOZENGE BUCCAL (09:01)
[2022-11-30] MEDS: hydrOXYzine HCL 25 MG TABLET PO (09:01)
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
[2022-11-30 09:52] VITALS: BP 139/78; PULSE 86; RESP 18; TEMP 36.2; O2SAT 98
[2022-11-30] MEDS: OLANZapine 2.5 MG TABLET PO (10:50)
--- NOTE | 2023-03-29 16:36 | P.EN_ITS ---
<Statement entered by Hawk Silva MD - 03/29/23 18:45> Would be quite unusual generally as s/e Documented by User: Amy April Delaney, OSEIL 03/29/23 16:39 Event Note Date of Service: 03/29/23 Event Note: Call from [facility] urgent care. [phone]. Pt has presented there today with reports of sudden onset bilateral knee pain. Team is wondering if it can be from Lamictal, Wellbutrin, or Quetiapine. Discussed SE of all three and that each could have potential for this issue. Discussed pt needing to contact her OP team for ongoing follow up Encouraged to trial stopping Seroquel first, if ineffective, Lamictal tapering, then Wellbutrin with OP team support in making any of these changes. Time Spent With Patient Time: Total time managing care of this patient today ____ minutes. Documented by User: Hawk Silva MD 03/29/23 18:45 Event Note Date of Service: 03/29/23
== END 2022-11-30 11:33 | disposition home or self-care (01) | DRG 753 ==
LOC: HO.ED 11-26 11:18 → HO.PM5 11-26 17:59
PROVIDERS: Physician Assistant; Admitting Provider Psychiatry & Neurology Psychiatry; Emergency Provider Emergency Medicine; Visit Provider Clinical Nurse Specialist Psychiatric/Mental Health, Adult
DX: F39 Unspecified mood [affective] disorder (principal); R45.851 Suicidal ideations; F43.10 Post-traumatic stress disorder, unspecified; F17.290 Nicotine dependence, other tobacco product, uncomplicated; S61.512A Laceration without foreign body of left wrist, initial encounter; X78.9XXA Intentional self-harm by unspecified sharp object, initial encounter; Z71.6 Tobacco abuse counseling; Z91.52 Personal history of nonsuicidal self-harm; Z79.899 Other long term (current) drug therapy
CPT/HCPCS: 36415; 80053; 80061; 80143; 80179; 80307; 81003; 81025; 83036; 83735; 84443; 85025; 87635; 90715; 99285

== ENCOUNTER → 2022-11-26 17:52 | Outpatient (BNV) | payer BC, SELFPAY | PROVIDERS: Admitting Provider Psychiatry & Neurology Psychiatry; Emergency Provider Emergency Medicine; Visit Provider Clinical Nurse Specialist Psychiatric/Mental Health, Adult | DX: F43.10 Post-traumatic stress disorder, unspecified (principal); F39 Unspecified mood [affective] disorder; R45.851 Suicidal ideations; S61.519A Laceration without foreign body of unspecified wrist, initial encounter; X78.9XXA Intentional self-harm by unspecified sharp object, initial encounter | CPT/HCPCS: 90792; 99231; 99232; 99238; 99499 ==

== ENCOUNTER 2023-01-07 10:43 | Outpatient (AMB) | payer BC, SELFPAY ==
--- NOTE | 2023-01-07 12:00 | MHC.OFFWIV ---
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 Patient Tobacco Use Status: Current everyday Tobacco user Allergies trazodone Adverse Reaction (Verified 01/07/23 12:33) Nightmare Medication List - Last Reconciled 01/07/23 by Braden Leon MD amoxicillin-pot clavulanate 875-125 mg 875 mg PO BID bupropion HCl 75 mg PO DAILY lamotrigine 50 mg (2 x 25 mg) PO BEDTIME lamotrigine (Lamictal) 50 mg (2 x 25 mg) PO DAILY 14 days melatonin 6 mg (2 x 3 mg) PO BEDTIME PRN nicotine 21 mg transdermal DAILY nicotine (polacrilex) 4 mg buccal Q2H PRN quetiapine 25 mg PO BID PRN quetiapine 50 mg PO BEDTIME quetiapine (Seroquel) 50 mg PO BEDTIME Do you need a note to return to daycare/school/sports/work: Yes 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 Reporting symptoms of sinus congestion, sore throat and difficulty swallowing. Low-grade fever. No family member is sick. No recent travel. Patient reports symptoms of malaise and fatigue. [facility] Medical History (Updated 01/07/23 @ 12:34 by Braden Leon MD) Mood disorder PTSD (post-traumatic stress disorder) Social History Household Members: Friend(s) Housing: House Do you presently have visiting nurse or other home services: No Patient Tobacco Use Status: Current everyday Tobacco user Tobacco use type: Cigarette and Smokeless Tobacco Cigarette Packs Per Day: 0.25 Cigarettes Per Day: 5.0 e-Cigarette/Vaping Use: Currently Using Second Hand Smoke Exposure: No Substance Use Type: Marijuana service: No Sexual orientation: Straight/Heterosexual Physical Exam Vital Signs: Last Vital Signs Temp 98.0 F 01/07/23 12:13 Pulse 88 01/07/23 12:13 BP 120/78 01/07/23 12:13 Pulse Ox 88 L 01/07/23 12:13 Oxygen Delivery Method Room Air 01/07/23 12:13 Const General: cooperative and healthy appearing Nutritional Appearance: well nourished Orientation/consciousness: patient oriented x3 Limitations: no limitations HEENT Other: Throat: Posterior pharyngeal wall is erythematous and congested. Head: Yes normal to inspection Eyes General: appearance normal, both eyes and all related structures Neck Neck: Yes normal visual inspection Chest Chest palpation & inspection: normal palpation of entire chest wall Resp Effort & Inspection: normal respiratory effort Neuro General: patient oriented x3 Results AMB Rapid Strep AMB Rapid Strep Positive Last Edit by Amadou Lopes CMA on 01/07/23 12:18 Results Reviewed Results Reviewed: Laboratory Last Values Strep Scn Rapid Clinic Positive 01/07/23 12:17 Assessment & Plan Assessment & Plan (1) Strep throat: Code(s): J02.0 - Streptococcal pharyngitis Plan: Test positive for strep. Antibiotics called in. If symptoms not better to follow-up here. Orders: Orders AMB Rapid Strep Screen Today Z13.9 - Encounter for screening, unspecified Coding Level of Care Code Est Pt Level 3 (53087) Diagnoses Strep throat J02.0
[2023-01-07 12:13] VITALS: BP 120/78; PULSE 88; TEMP 36.7; O2SAT 88
== END 2023-01-07 12:34 | disposition home or self-care (01) ==
PROVIDERS: Visit Provider Internal Medicine
DX: J02.0 Streptococcal pharyngitis (principal); J02.9 Acute pharyngitis, unspecified
CPT/HCPCS: 87880; 99213

== ENCOUNTER 2023-04-01 16:51 | Emergency (ER) | payer BC, SELFPAY ==
[2023-04-01 17:33] VITALS: BP 97/57; PULSE 80; RESP 16; TEMP 36.8; O2SAT 100; BMI 23.8
--- NOTE | 2023-04-01 17:34 | ED_ITS ---
HPI - General Adult General Chief complaint: Dizziness Stated complaint: GLUCOSE 56/COMING FROM [facility] Time Seen by Provider: 04/01/23 23:39 Source: patient Mode of arrival: EMS Limitations: no limitations History of Present Illness HPI narrative: Patient is a 22-year-old female who presents to the emergency department by advisement of urgent care. She reports that yesterday she was evaluated at [facility] urgent care for knee pain. She had blood work drawn to check for Lyme disease by her account. She received a phone call this morning advising that her glucose level was low when they had obtained her labs; 56, and advised her to present to the emergency department for evaluation. She states that she did return back to [facility] ED today but did not check in as the female waiting room I had a very long wait time. She reports a vague history of intermittent lightheadedness occurring very frequently in without any additional symptom she can attribute to this. She denies any history of diabetes. Denies any history of hepatic or pancreatic disease. Denies alcoholism. She does state that her labs were drawn in the afternoon and she had not eaten since the night prior. Related Data Previous Rx's Medication Instructions Recorded amoxicillin 875 mg-potassium 875 mg PO BID #14 tabs 11/30/22 clavulanate 125 mg tablet lamotrigine 25 mg tablet 50 mg (2 x 25 mg) PO BEDTIME #60 11/30/22 tabs melatonin 3 mg tablet 6 mg (2 x 3 mg) PO BEDTIME PRN 11/30/22 Insomnia #60 tabs nicotine (polacrilex) 2 mg gum 4 mg buccal Q2H PRN Nicotine 11/30/22 Cravings #60 ea nicotine 21 mg/24 hr daily 21 mg transdermal DAILY #30 ea 11/30/22 transdermal patch quetiapine 25 mg tablet 25 mg PO BID PRN anxiety #60 tabs 11/30/22 quetiapine 50 mg tablet 50 mg PO BEDTIME #30 tabs 11/30/22 bupropion HCl 75 mg tablet 75 mg PO DAILY #14 tabs 01/01/23 lamotrigine 25 mg tablet (Lamictal) 50 mg (2 x 25 mg) PO DAILY 14 days 01/01/23 #30 tabs quetiapine 50 mg tablet (Seroquel) 50 mg PO BEDTIME #14 tabs 01/01/23 azithromycin 250 mg tablet See Rx Instructions PO .COMPLEX #6 01/07/23 tabs bupropion HCl 75 mg tablet 75 mg PO DAILY #14 tabs 02/01/23 lamotrigine 25 mg tablet (Lamictal) 25 mg PO DAILY 14 days #14 tabs 02/01/23 quetiapine 50 mg tablet (Seroquel) 50 mg PO BEDTIME #14 tabs 02/01/23 Allergies Allergy/AdvReac Type Severity Reaction Status Date / Time trazodone AdvReac Nightmare Verified 01/07/23 12:33 Review of Systems 2 Review of Systems: Yes all other systems are reviewed and are negative PMFSH Past Medical History Attestation statement: The following information was validated with the patient. Source: old records reviewed Medical History Mood disorder PTSD (post-traumatic stress disorder) Social History Social History Household Members: Friend(s) Housing: House Do you presently have visiting nurse or other home services: No Comment: pt. aware of using precaution Patient Tobacco Use Status: Current everyday Tobacco user Tobacco use type: Cigarette and Smokeless Tobacco Cigarette Packs Per Day: 0.25 Cigarettes Per Day: 5.0 e-Cigarette/Vaping Use: Currently Using Second Hand Smoke Exposure: No Substance Use Type: Marijuana Advance Directives: No Advance Directives Information Provided: Yes service: No Sexual orientation: Straight/Heterosexual Physical Exam ED Vital Signs: Vital Signs - 24 hr 04/01/23 17:33 Temperature 98.2 F Pulse Rate 80 Respiratory Rate 16 Blood Pressure 97/57 L Pulse Oximetry 100 Oxygen Delivery Method Room Air BMI result Body Mass Index 23.8 Appearance: Alert.?Oriented to person, place and time. No acute distress.?Normal affect. Eyes: Pupils equal, round and reactive to light.? ENT: Pharynx normal.?? Neck: Normal inspection.? Neck supple.?? CVS: Heart sounds normal. Normal heart rate and rhythm.? Pulses normal.?? Respiratory: No respiratory distress.? Lung sounds clear to auscultation bilaterally?? Abdomen: Soft and non-tender. Normoactive bowel sounds. Skin: Skin warm and dry.? Normal skin color.? Extremities: No lower extremity edema.? Neuro: Moves all extremities spontaneously. Sensation intact bilaterally. No focal neuro deficits. Ambulates with normal steady gait. Course Course Course Narrative: This is a rapid medical exam: Additional HPI, ROS, PE not included below will be deferred to primary provider. Patient is a 22-year-old female presenting to ED stating that she had labs drawn at [facility], after leaving received a call that her glucose level was low and to return to a hospital for evaluation. Reports she has been having episodes of lightheadedness, denies history of DM. States was initially at for knee pain. POC here 94. Plan: labs, UA, viral swabs Medical Decision Making Medical Decision Making MDM Narrative: Patient is a 22 old female reporting to the emergency department with referral from urgent care for hypoglycemia detected in labs obtained yesterday afternoon after prior fasting as per HPI. Upon review of her records here she has had is blood glucose levels in the 80s. When asked review of systems specifically yesterday surrounding the time labs were obtained as well as currently she is asymptomatic. Upon presentation to the emergency department today her blood glucose level was 92, on repeat at the time of my evaluation at 23:30 glucose was 109. She has no history of hepatic disease, pancreatitis, diabetes cups substance use disorder to suggest alternative cause. Reviewed labs obtained prior to my assumption of care, CBC and CMP are unremarkable. HCG is negative. Urinalysis is for reveals trace pyuria with squamous epithelial cells, asymptomatic, suspect this is urogenital contamination, would defer treatment at this time. Urinalysis is without glucosuria or ketone urea. Suspect that the hypoglycemia yesterday was due to her fasting state. We discussed signs and symptoms of hypoglycemia, actions to take if she develops such symptoms. Advised outpatient follow-up with her primary care provider for further evaluation as needed. All questions answered. Stable for discharge. Differential Diagnosis Differential Diagnoses: The differential diagnosis associated with the presentation includes (As noted above) Admission/Observation Consideration of admission/observation: Escalation of care including admission/observation considered (As noted above) Lab Data [facility] Lab Attestation statement: I reviewed the patient's lab results. (As noted above) 04/01/23 17:50 04/01/23 17:50 Labs: Lab Results 04/01/23 04/01/23 04/01/23 Range/Units 17:50 20:01 20:18 WBC 7.7 (4.8-10.8) X10*3/uL RBC 4.60 (4.20-5.50) X10*6/uL Hgb 13.4 (12.0-16.0) g/dl Hct 41.0 (37.0-47.0) % MCV 89.1 (80.0-98.0) fL MCH 29.1 (27.0-33.0) pg MCHC 32.7 (31.0-35.0) g/dl RDW 12.5 (11.0-16.0) % Plt Count 230 D (160-400) X10*3/uL MPV 9.5 (9.4-12.3) fL Immature Gran % (Auto) 0.3 (0.0-0.4) % Neut % (Auto) 57.3 (45-73) % Lymph % (Auto) 34.6 (20-40) % [place] % (Auto) 5.6 (2-11) % Eos % (Auto) 1.7 (0-4) % Baso % (Auto) 0.5 (0-2) % Lymph # (Auto) 2.7 (1.2-4.9) X10*3/uL [place] # (Auto) 0.4 (0.1-1.2) X10*3/uL Eos # (Auto) 0.1 (0.0-0.4) X10*3/uL Baso # (Auto) 0.0 (0.0-0.2) X10*3/uL Abs Immat Gran (auto) 0.02 (0.00-0.03) X10*3/uL Absolute Neuts (auto) 4.4 (2.0-8.3) x10*3/uL Absolute Nucleated RBC 0.000 (0.0-0.012) X10*3/uL Nucleated RBC % (auto) 0.0 (0.0-0.2) /100WBC Sodium 141 (135-145) mmol/L Potassium 4.1 (3.3-5.1) mmol/L Chloride 105 (96-108) mmol/L Carbon Dioxide 28 (22-29) mmol/L Anion Gap 12 (12-20) BUN 14 (9-16) mg/dL Creatinine 0.85 (0.5-1.4) mg/dL Estim Creat Clear Calc 80.7 Estimated GFR > 60 POC Glucose 94 (60-115) mg/dL Random Glucose 92 (60-115) mg/dL Calcium 10.0 (8.4-10.2) mg/dL Beta HCG, Quant < 2 mIU/mL Urine Color Yellow Urine Appearance Clear Urine pH 6.0 (5.0-9.0) Ur Specific [address] [place] 1.025 (1.005-1.025) Urine Protein Negative (Neg-Trace) mg/dL Urine Glucose (UA) Negative (Negative) mg/dL Urine Ketones Negative (Negative) mg/dL Urine Blood Negative (Negative) Urine Nitrite Negative (Negative) Ur Leukocyte Esterase Trace H (Negative) Urine RBC 0-2 (0-2) /HPF Urine WBC 6-10 H (0-5) /HPF Ur Squamous Epith Cells 6-10 (0-2) /HPF Urine Bacteria 1+ (None Seen) Hyaline Casts 0-2 (0-2) /LPF COVID-19 (DORCAS) Negative (Negative) COVID-19 Clin Com See Note Influenza Type A (GUILLERMO) Negative (Negative) Influenza Type B (GUILLERMO) Negative (Negative) Influenza A & B Note See Note External Record Review External record reviewed: Outpatient record Tests considered The following testing was considered but not selected: See narrative above Discharge Plan Discharge Clinical Impression: Hypoglycemia Patient Disposition: Home, Self-Care Instructions: Non-diabetic Hypoglycemia (ED) Additional Instructions: Consume small frequent meals to assure that your blood sugar levels not dropped to. With intestinal of low blood sugar you should consume a fast acting carbohydrate such as bread, fluids, juice, milk candy. Followed by a sufficient meal afterwards. You should avoid foods/drinks that are high in caffeine as this may worsen symptoms of low blood sugar and causing to feel worse. Will close the should condition a sufficient amounts of protein. Contact your primary care provider to arrange for a follow-up visit. Return back to emergency department any new or worsening symptoms or concerns. Prescriptions: No Action amoxicillin-pot clavulanate 875-125 mg Tablet 875 mg PO BID Qty: 14 0RF nicotine 21 mg/24 hr Patch 24 Hour 21 mg transdermal DAILY Qty: 30 0RF nicotine (polacrilex) 2 mg Gum 4 mg buccal Q2H PRN (Reason: Nicotine Cravings) Qty: 60 0RF lamotrigine 25 mg Tablet 50 mg PO BEDTIME Qty: 60 0RF quetiapine 25 mg Tablet 25 mg PO BID PRN (Reason: anxiety) Qty: 60 0RF quetiapine 50 mg Tablet 50 mg PO BEDTIME Qty: 30 0RF melatonin 3 mg Tablet 6 mg PO BEDTIME PRN (Reason: Insomnia) Qty: 60 0RF bupropion HCl 75 mg tablet 75 mg PO DAILY Qty: 14 1RF lamotrigine [Lamictal] 25 mg tablet 50 mg PO DAILY 14 Days Qty: 30 1RF quetiapine [Seroquel] 50 mg tablet 50 mg PO BEDTIME Qty: 14 1RF lamotrigine [Lamictal] 25 mg tablet 25 mg PO DAILY 14 Days Qty: 14 1RF quetiapine [Seroquel] 50 mg tablet 50 mg PO BEDTIME Qty: 14 1RF bupropion HCl 75 mg tablet 75 mg PO DAILY Qty: 14 1RF Rx Instructions: administer 6 hours apart azithromycin 250 mg tablet See Rx Instructions PO .COMPLEX Qty: 6 0RF Rx Instructions: take 500 mg today (day 1), then 250 mg for 4 days (days 2-5) PO Referrals: Physician,Unknown J [Primary Care Provider] -
--- NOTE | 2023-04-01 17:36 | ECG_ITS ---
Test Reason : LIGHTHEADED Blood Pressure : / mmHG Vent. Rate : 076 BPM Atrial Rate : 076 BPM P-R Int : 122 ms QRS Dur : 084 ms QT Int : 372 ms P-R-T Axes : 050 081 050 degrees QTc Int : 418 ms Normal sinus rhythm Normal ECG No previous ECGs available Referred By: Corine Edge Electronically Signed By:CARLOS BECKHAM
[2023-04-01 17:55] LABS: MANUAL DIFF FLAG NO
[2023-04-01 17:56] LABS: Hemoglobin 13.4 g/dl (12.0-16.0); White Blood Count 7.7 X10*3/uL (4.8-10.8)
[2023-04-01 17:57] LABS: Basophils Percent Auto 0.5 % (0-2); Eosinophils Absolute Auto 0.1 X10*3/uL (0.0-0.4); Eosinophils Percent Auto 1.7 % (0-4); Imm Gran Abs Auto 0.02 X10*3/uL (0.00-0.03); Imm Gran Pct Auto 0.3 % (0.0-0.4); Lymphocytes Absolute Auto 2.7 X10*3/uL (1.2-4.9); Lymphocytes Percent Auto 34.6 % (20-40); Mean Corpuscular HGB Conc 32.7 g/dl (31.0-35.0); Mean Corpuscular Hemoglobin 29.1 pg (27.0-33.0); Mean Corpuscular Volume 89.1 fL (80.0-98.0); Mean Platelet Volume 9.5 fL (9.4-12.3); Monocytes Absolute Auto 0.4 X10*3/uL (0.1-1.2); Monocytes Percent Auto 5.6 % (2-11); Neutrophils Absolute Auto 4.4 x10*3/uL (2.0-8.3); Neutrophils Percent Auto 57.3 % (45-73); Platelet Count 230 X10*3/uL (160-400); Red Cell Distribution Width 12.5 % (11.0-16.0)
[2023-04-01 18:15] LABS: COVID-19 Test Negative (Negative); IDNOW Serial# 9DB6401D; IDNOW Serial# BCCEAD1C; Influenza A Negative (Negative); Influenza B2 Negative (Negative)
[2023-04-01 18:17] LABS: Anion Gap 12 (12-20); Blood Urea Nitrogen 14 mg/dL (9-16); Carbon Dioxide 28 mmol/L (22-29); Chloride 105 mmol/L (96-108); Creatinine Clr Calc Pharmacy 80.7; Estimated Glomerular Filt Rate > 60; Glucose Random 92 mg/dL (60-115); Potassium 4.1 mmol/L (3.3-5.1); Sodium 141 mmol/L (135-145)
[2023-04-01 18:19] LABS: HCG Quantitative < 2 mIU/mL
[2023-04-01 20:04] LABS: Glucose, Whole Blood 94 mg/dL (60-115)
[2023-04-01 20:34] LABS: Appearance Urine Clear; Color Urine Yellow; Glucose Urine UA Negative (Negative); Leukocyte Esterase Urine Trace (Negative); Nitrite Urine Negative (Negative); Specific Gravity - Urine 1.025 (1.005-1.025); UMIC TRIGGER UACC YES; Urine Blood Negative (Negative); Urine Ketones Negative (Negative); Urine Protein Negative (Neg-Trace)
[2023-04-01 20:39] LABS: Bacteria Urine 1+ (None Seen); Hyaline Casts Urine 0-2 /LPF (0-2); RBC Urine 0-2 /HPF (0-2); UACC Culture Trigger YES
[2023-04-01 23:55] LABS: Glucose, Whole Blood 109 mg/dL (60-115)
[2023-04-02 00:15] LABS: Alanine Aminotransferase 17 U/L (0-31); Albumin Level 4.5 g/dL (3.5-5.0); Alkaline Phosphatase 75 U/L (39-117); Aspartate Amino Transferase 21 U/L (5-31); Bilirubin Direct 0.2 mg/dL (0.0-0.5); Bilirubin Total 0.6 mg/dL (0.0-1.0); Total Protein 7.3 g/dL (6.5-8.0)
[2023-04-02 00:33] VITALS: BP 115/73; PULSE 73; RESP 18; O2SAT 97
[2023-04-02 06:52] LABS: Glucose, Whole Blood 92 mg/dL (60-115)
== END 2023-04-02 00:35 | disposition home or self-care (01) ==
PROVIDERS: Nurse Practitioner Family; Registered Nurse Emergency; Emergency Provider Student in an Organized Health Care Education/Training Program
DX: R42 Dizziness and giddiness (principal); E16.2 Hypoglycemia, unspecified; F17.210 Nicotine dependence, cigarettes, uncomplicated; Z11.52 Encounter for screening for COVID-19; Z20.822 Contact with and (suspected) exposure to COVID-19; Z71.6 Tobacco abuse counseling; Z79.899 Other long term (current) drug therapy
CPT/HCPCS: 36415; 80048; 80076; 81001; 82947; 84702; 85025; 87086; 87502; 87635; 93005; 99283; 99284

== ENCOUNTER → 2023-04-01 17:36 | Outpatient (BNV) | payer BC, SELFPAY | PROVIDERS: Emergency Provider Student in an Organized Health Care Education/Training Program; Visit Provider Internal Medicine | DX: R42 Dizziness and giddiness (principal) | CPT/HCPCS: 93010 ==

== ENCOUNTER 2023-06-13 08:09 | Outpatient (AMB) | payer BC, SELFPAY ==
[2023-06-13 08:10] VITALS: BP 130/80; PULSE 78; TEMP 36.9; O2SAT 98; BMI 23.8
--- NOTE | 2023-06-13 08:10 | MHC.OFFWIV ---
Intake Vital Signs 06/13/23 08:10 Height 5 ft 2 in Weight 130 lb BMI 23.8 BP 130/80 Blood Pressure Location Lt brachial Position Sitting Pulse 78 Pulse Source Pulse Oximeter Temp 98.5 F Temp Source Oral Pulse Oximetry (%) 98 Oxygen Delivery Method Room Air Intake Visit Reasons: EP ?Strep throat Intake Note: pt is here for c.o possible strep throat Patient Tobacco Use Status: Current everyday Tobacco user Allergies trazodone Adverse Reaction (Verified 06/13/23 08:11) Nightmare Do you need a note to return to daycare/school/sports/work: No HPI HPI Comments History of Present Illness Details 22 y/o female patient presents to walk in clinic with c/o sorethroat x 3 days. H/o chronic Strept infections with hospitalization 2022. Reports high fevers of 103 F, nausea and vomiting. Reports malaise, headaches and poor appetite. [facility] Medical History Mood disorder PTSD (post-traumatic stress disorder) Social History Household Members: Friend(s) Housing: House Do you presently have visiting nurse or other home services: No Alcohol intake: never Comment: pt. aware of using precaution Patient Tobacco Use Status: Current everyday Tobacco user Tobacco use type: Cigarette and Smokeless Tobacco Cigarette Packs Per Day: 0.25 Cigarettes Per Day: 5.0 e-Cigarette/Vaping Use: Currently Using Second Hand Smoke Exposure: No Substance Use Type: Marijuana service: No Sexual orientation: Straight/Heterosexual Review of Systems Const All systems reviewed & are unremarkable except as noted in HPI and below Physical Exam Vital Signs: Last Vital Signs Temp 98.5 F 06/13/23 08:10 Pulse 78 06/13/23 08:10 BP 130/80 06/13/23 08:10 Pulse Ox 98 06/13/23 08:10 Oxygen Delivery Method Room Air 06/13/23 08:10 BMI result Body Mass Index 23.8 Const General: no acute distress and ill appearing; No comfortable HEENT Head: Yes normocephalic Ears: external ears normal and TM's normal bilaterally General nose exam: Normal external nose present, Abnormal mucous membranes and turbinates present boggy and erythematous and Nasal discharge present Face and sinus: Yes sinuses nontender Mouth: malodorous breath and Abnormal oral and palatal mucosa present erythematous and white patches Throat: Yes uvula midline, Yes abnormal tonsil (grade 3 swelling), No peritonsillar mass, Yes postnasal drainage and No uvular edema Resp Effort & Inspection: normal respiratory effort Auscultation: clear to auscultation bilaterally Cardio Rate: regular rate Rhythm: regular rhythm Results AMB Rapid Strep AMB Rapid Strep Negative Last Edit by Amadou Lopes CMA on 06/13/23 08:46 Results Reviewed Results Reviewed: Laboratory Last Values Strep Scn Rapid Clinic Negative 06/13/23 08:46 Assessment & Plan Assessment & Plan (1) Acute pharyngitis: Code(s): J02.9 - Acute pharyngitis, unspecified Qualifiers: Pharyngitis/tonsillitis etiology: other specified organisms Qualified Code(s): J02.8 - Acute pharyngitis due to other specified organisms Plan: - OTC cold/cough remedies - Warm tea with honey (2) Nausea and vomiting: Code(s): R11.2 - Nausea with vomiting, unspecified Qualifiers: Vomiting type: unspecified Qualified Code(s): R11.2 - Nausea with vomiting, unspecified Plan: - Gave Zofran 4 mg in the office - Hydrate with warm fluids - Rest - Avoid greasy and oily foods. Orders: Orders AMB Ondansetron Adult Dose Today R11.2 - Nausea with vomiting, unspecified AMB Rapid Strep Screen Today Z13.9 - Encounter for screening, unspecified Medications: New amoxicillin-pot clavulanate 875-125 mg 1 tab PO BID 10 days 20 tabs 0RF J02.8 - Acute pharyngitis due to other specified organisms ondansetron 8 mg PO Q8H 20 tabs 0RF R11.2 - Nausea with vomiting, unspecified acetaminophen 1,000 mg (2 x 500 mg) PO Q6H PRN 30 caps 0RF fever J02.8 - Acute pharyngitis due to other specified organisms prednisone 50 mg PO DAILY 5 days 5 tabs 0RF J02.8 - Acute pharyngitis due to other specified organisms ondansetron 4 mg translingual ONCE 1 tab 0RF R11.2 - Nausea with vomiting, unspecified Coding Level of Care Code Est Pt Level 3 (09086) Diagnoses Acute pharyngitis due to other specified organisms J02.8 Pharyngitis/tonsillitis etiology: other specified organisms Nausea and vomiting, unspecified vomiting type R11.2 Vomiting type: unspecified Time Spent (min) 15
== END 2023-06-13 08:37 | disposition home or self-care (01) ==
PROVIDERS: Visit Provider Nurse Practitioner Family
DX: J02.8 Acute pharyngitis due to other specified organisms (principal); R11.2 Nausea with vomiting, unspecified
CPT/HCPCS: 87880; 99213

== ENCOUNTER 2023-10-25 21:12 | Emergency (ER) | payer BC, SELFPAY ==
--- NOTE | ~2023-10-25 | CT_ITS ---
EXAMINATION: CT facial bones w IV con CLINICAL INFORMATION: R sided dental pain ? abscess COMPARISON: None. TECHNIQUE: Imaging was performed from the skull base to vertex after the uneventful administration of 85 mL Omnipaque 350 intravenous contrast. In addition, helical noncontrast CT imaging was acquired through the facial bones and source images were reviewed along with axial reconstructions and sagittal and coronal MPRs. This CT examination was performed using dose optimization techniques as appropriate, variously including the following: * Automated exposure control * Adjustment of mA and/or kV according to patient size (this includes techniques or standardized protocols for targeted exams where dose is matched to indication/reason for exam; i.e. extremities or head) Use of iterative reconstruction technique Total exam dose-length product 271 mGy-cm FINDINGS: Large dental caries in the right maxillary second molar. No soft tissue edema or focal fluid collection to suggest abscess. No acute maxillofacial fractures are seen. The mandible, maxilla, pterygoid plates, nasal bones, zygomatic arches, paranasal sinus leigh, and bony orbits are intact. The frontal, maxillary, ethmoid, and sphenoid sinuses are well aerated. The uncinate process is normal bilaterally. The infundibula and middle meati are patent. There is a minimal rightward nasal septal deviation. The mandibular heads are well-seated in the condylar fossa. The orbits demonstrate a normal appearance bilaterally. The globes are intact, and there are no suspicious findings to suggest retrobulbar hemorrhage. The visualized cervical carotid arteries and vertebral arteries are widely patent bilaterally. The intracranial internal carotid artery is in the visualized [place] are well opacified. The bilateral jugular veins and venous sinuses are well opacified. The visualized brain is normal. CT/CT facial bones w IV con IMPRESSION: Large dental caries in the right maxillary second molar. No soft tissue edema or focal fluid collection to suggest abscess.
[2023-10-25 21:14] VITALS: BP 141/95; PULSE 64; RESP 18; TEMP 37.2; O2SAT 99; BMI 21.8
[2023-10-25 21:37] LABS: Imm Gran Abs Auto 0.01 X10*3/uL (0.00-0.03); Imm Gran Pct Auto 0.1 % (0.0-0.4); MANUAL DIFF FLAG SCAN; Mean Corpuscular Hemoglobin 30.1 pg (27.0-33.0); PLT CLUMP 1; SCAN SMEAR FLAG 1
[2023-10-25 21:39] LABS: Basophils Absolute Auto 0.1 X10*3/uL (0.0-0.2); Basophils Percent Auto 0.7 % (0-2); Eosinophils Absolute Auto 0.2 X10*3/uL (0.0-0.4); Eosinophils Percent Auto 2.5 % (0-4); Hematocrit 37.5 % (37.0-47.0); Hemoglobin 12.7 g/dl (12.0-16.0); Lymphocytes Absolute Auto 2.6 X10*3/uL (1.2-4.9); Lymphocytes Percent Auto 37.9 % (20-40); Mean Corpuscular HGB Conc 33.9 g/dl (31.0-35.0); Mean Corpuscular Volume 88.9 fL (80.0-98.0); Mean Platelet Volume 9.8 fL (9.4-12.3); Monocytes Absolute Auto 0.5 X10*3/uL (0.1-1.2); Monocytes Percent Auto 7.1 % (2-11); Neutrophils Absolute Auto 3.6 x10*3/uL (2.0-8.3); Neutrophils Percent Auto 51.7 % (45-73); Red Blood Count 4.22 X10*6/uL (4.20-5.50); Red Cell Distribution Width 12.6 % (11.0-16.0)
[2023-10-25 21:45] LABS: White Blood Count 6.9 X10*3/uL (4.8-10.8)
[2023-10-25 21:55] LABS: Alanine Aminotransferase 8 U/L (0-31); Albumin Level 4.7 g/dL (3.5-5.0); Alkaline Phosphatase 86 U/L (39-117); Anion Gap 16 (12-20); Aspartate Amino Transferase 17 U/L (5-31); Bilirubin Total 0.7 mg/dL (0.0-1.0); Blood Urea Nitrogen 9 mg/dL (9-16); Calcium 10.2 mg/dL (8.4-10.2); Carbon Dioxide 26 mmol/L (22-29); Chloride 106 mmol/L (96-108); Creatinine Clr Calc Pharmacy 80.3; Estimated Glomerular Filt Rate > 60; Glucose Random 105 mg/dL (60-115); Potassium 4.6 mmol/L (3.3-5.1); Sodium 143 mmol/L (135-145); Total Protein 7.4 g/dL (6.5-8.0)
[2023-10-25 22:13] LABS: Platelet Count 205 X10*3/uL (160-400)
[2023-10-25 22:17] LABS: SLIDE REVIEW VERIFIED
--- NOTE | 2023-10-25 22:35 | ED_ITS ---
HPI - Dental/Oral General Chief complaint: Dental/Oral Stated complaint: Toothache/Fever/Pain Time Seen by Provider: 10/25/23 22:30 Source: patient Mode of arrival: ambulatory Limitations: no limitations History of Present Illness ED Provider: Claudia JUARES HPI Narrative: 22-year-old female history of mood disorder, PTSD presenting to the emergency department with concerns that she may have a tooth infection, patient reports she was recently on clindamycin for 10 days for this infection , she completed it about 2 weeks ago. Patient reporting that she thinks the tooth still infected she reports significant discomfort to the right lower side associated with pain, swelling and intermittent numbness. She reports subjective fevers and chills however has not actually checked her temperature. Patient has not been eating and drinking secondary to pain. Related Data Previous Rx's ?Medication ?Instructions ?Recorded acetaminophen 500 mg capsule 1,000 mg (2 x 500 mg) PO Q6H PRN 06/13/23 fever #30 caps amoxicillin 875 mg-potassium 1 tab PO BID 10 days #20 tabs 06/13/23 clavulanate 125 mg tablet ondansetron 8 mg disintegrating 8 mg PO Q8H #20 tabs 06/13/23 tablet prednisone 50 mg tablet 50 mg PO DAILY 5 days #5 tabs 06/13/23 amoxicillin 875 mg-potassium 1 tab PO BID 7 days #14 tabs 10/25/23 clavulanate 125 mg tablet ketorolac 10 mg tablet 10 mg PO TID PRN pain 5 days #15 10/25/23 tabs ondansetron 4 mg disintegrating 4 mg PO Q6H PRN nausea and 10/26/23 tablet vomiting #14 tabs Allergies Allergy/AdvReac Type Severity Reaction Status Date / Time latex AdvReac Hives Verified 10/25/23 21:17 trazodone AdvReac Nightmare Verified 10/25/23 21:17 Review of Systems 2 Review of Systems: Yes all other systems are reviewed and are negative PMFSH Past Medical History Attestation statement: The following information was validated with the patient. Source: old records reviewed Medical History Mood disorder PTSD (post-traumatic stress disorder) Social History Social History Household Members: Friend(s) Housing: House Do you presently have visiting nurse or other home services: No Alcohol intake: never Comment: pt. aware of using precaution Patient Tobacco Use Status: Current everyday Tobacco user Tobacco use type: Cigarette and Smokeless Tobacco Cigarette Packs Per Day: 0.25 Cigarettes Per Day: 5.0 e-Cigarette/Vaping Use: Currently Using Second Hand Smoke Exposure: No Substance Use Type: Marijuana Advance Directives: No Advance Directives Information Provided: No service: No Sexual orientation: Straight/Heterosexual Physical Exam 2 Vital Signs: Vital Signs: Last Vital Signs Temp 98.9 F 10/25/23 21:14 Pulse 64 10/25/23 21:14 Resp 18 10/25/23 21:14 BP 141/95 H 10/25/23 21:14 Pulse Ox 99 10/25/23 21:14 O2 Del Method Room Air 10/25/23 21:14 BMI result Body Mass Index 21.8 vss Appearance: Alert.? Oriented X3.? No acute distress.? Head: Normocephalic, atraumatic, no step-offs or deformities Eyes: Pupils equal, round and reactive to light.? ENT: Pharynx normal.?Tooth #1-3 with fractures, poor dention throughout and hallitiosis Neck: Normal inspection.? Neck supple.? CVS: Normal heart rate and rhythm.? Pulses normal.? Respiratory: No respiratory distress.? Breath sounds normal.? Abdomen: Soft and nontender.? Skin: Skin warm and dry.? Normal skin color.? Normal skin turgor.? Extremities: No lower extremity edema.? No calf ttp. 5/5 strength to bilateral upper and lower extremities Back: No midline tenderness, no C-spine tenderness, full range of motion, no CVA tenderness bilaterally Neuro: Oriented X 3.? No motor deficit.? No sensory deficit. CN 2-12 intact Course Reevaluation(s) Reevaluation #1: CBC unremarkable. Chemistry no acute findings needing intervention. Beta hCG pending. A CT of teeth pending. Time: 22:54 Reevaluation #2: Patient with a few episodes of nausea and vomiting. Likely secondary to pain. She has not been eating much due to pain. Zofran given. Will try Reglan and Benadryl. Time: 23:59 Medications Administered Generic Name Dose Route Start Last Admin Trade Name Ricci PRN Reason Stop Dose Admin Sodium Chloride 1,000 mls @ 999 mls/hr 10/25/23 23:45 10/26/23 00:11 Ns IV 10/26/23 00:45 999 mls/hr .Q1H1M ANNMARIE Administration Discontinued Medications Generic Name Dose Route Start Last Admin Trade Name Ricci PRN Reason Stop Dose Admin Acetaminophen 975 mg 10/25/23 22:40 10/25/23 23:14 Acetaminophen 325 Mg Tablet PO 10/25/23 22:41 Not Given ONCE ONE Diphenhydramine HCl 25 mg 10/25/23 23:59 10/26/23 00:10 Diphenhydramine Hcl 50 Mg/Ml Vial IVPUSH 10/26/23 00:00 25 mg ONCE ONE Administration Iohexol 85 ml 10/25/23 23:32 10/25/23 23:33 Iohexol 350 Mg/Ml 100 Ml Infus..Btl IV 10/25/23 23:33 85 ml ONCE ONE Administration Ketorolac Tromethamine 30 mg 10/25/23 22:39 10/25/23 23:14 Ketorolac Tromethamine 30 Mg/Ml Vial IM 10/25/23 22:40 30 mg ONCE ONE Administration Metoclopramide HCl 10 mg 10/25/23 23:59 10/26/23 00:10 Metoclopramide Hcl 10 Mg/2 Ml Vial IVPUSH 10/26/23 00:00 10 mg ONCE ONE Administration Morphine Sulfate 4 mg 10/25/23 22:52 10/25/23 23:18 Morphine Sulfate 4 Mg/Ml Cartridge IVPUSH 10/25/23 22:53 Not Given ONCE ONE Protocol Ondansetron HCl 4 mg 10/25/23 22:52 10/25/23 23:14 Ondansetron Hcl 4 Mg/2 Ml Vial IVPUSH 10/25/23 22:53 4 mg ONCE ONE Administration Medical Decision Making Medical Decision Making MDM Narrative: 22-year-old female presents with right-sided dental pain ongoing for the past few weeks, recent antibiotic course however not improving. Physical Pharynx normal.?Tooth #1-3 with fractures, poor dention throughout and hallitiosis History and physical exam concerning for poor dentition/dental caries & dental fx and possible early infection no signs of abscess, threat to airway, acute respiratory distress, ludwigs angina Plan- labs, imaging Differential Diagnosis Differential Diagnoses: The differential diagnosis associated with the presentation includes History and physical exam concerning for poor dentition/dental caries & dental fx and possible early infection no signs of abscess, threat to airway, acute respiratory distress, ludwigs angina Admission/Observation Consideration of admission/observation: Escalation of care including admission/observation considered unlikely Lab Data MDM Lab Attestation statement: I reviewed the patient's lab results. 10/25/23 21:32 10/25/23 21:32 Labs: Lab Results 10/25/23 Range/Units 21:32 WBC 6.9 (4.8-10.8) X10*3/uL RBC 4.22 (4.20-5.50) X10*6/uL Hgb 12.7 (12.0-16.0) g/dl Hct 37.5 (37.0-47.0) % MCV 88.9 (80.0-98.0) fL MCH 30.1 (27.0-33.0) pg MCHC 33.9 (31.0-35.0) g/dl RDW 12.6 (11.0-16.0) % Plt Count 205 (160-400) X10*3/uL MPV 9.8 (9.4-12.3) fL Immature Gran % (Auto) 0.1 (0.0-0.4) % Neut % (Auto) 51.7 (45-73) % Lymph % (Auto) 37.9 (20-40) % [place] % (Auto) 7.1 (2-11) % Eos % (Auto) 2.5 (0-4) % Baso % (Auto) 0.7 (0-2) % Lymph # (Auto) 2.6 (1.2-4.9) X10*3/uL [place] # (Auto) 0.5 (0.1-1.2) X10*3/uL Eos # (Auto) 0.2 (0.0-0.4) X10*3/uL Baso # (Auto) 0.1 (0.0-0.2) X10*3/uL Abs Immat Gran (auto) 0.01 (0.00-0.03) X10*3/uL Absolute Neuts (auto) 3.6 (2.0-8.3) x10*3/uL Absolute Nucleated RBC 0.000 (0.0-0.012) X10*3/uL Nucleated RBC % (auto) 0.0 (0.0-0.2) /100WBC Smear Tech's Comments VERIFIED Sodium 143 (135-145) mmol/L Potassium 4.6 (3.3-5.1) mmol/L Chloride 106 (96-108) mmol/L Carbon Dioxide 26 (22-29) mmol/L Anion Gap 16 (12-20) BUN 9 (9-16) mg/dL Creatinine 1.01 (0.5-1.4) mg/dL Estim Creat Clear Calc 80.3 Estimated GFR > 60 Random Glucose 105 (60-115) mg/dL Calcium 10.2 (8.4-10.2) mg/dL Total Bilirubin 0.7 (0.0-1.0) mg/dL AST 17 (5-31) U/L ALT 8 (0-31) U/L Alkaline Phosphatase 86 (39-117) U/L Total Protein 7.4 (6.5-8.0) g/dL Albumin 4.7 (3.5-5.0) g/dL Beta HCG, Quant < 2 mIU/mL Independent Interpretation I performed an independent interpretation of an: CT Scan Radiology Impression Discussion of test interpretation with radiology: I have reviewed the radiologist's reading. External Record Review External record reviewed: Office record, Outpatient record and Prior outpatient labs Prescription Management I considered prescription management with: Antibiotic Chronic Conditions Patient?s care impacted by: Other (ptsd. mood disorder) Social Determinants Patient?s care significantly limited by Social Determinants of Health including: Low income Critical Care Time Critical Care Time Critical Care Time: Yes Total Critical Care Time: 35 Attestation: I attest to this time spent taking care of the patient, obtaining history, physical, reviewing labs, imaging, speaking to my attending, specialist or hospitalist. Discharge Plan Discharge Clinical Impression: Toothache Patient Disposition: Home, Self-Care Instructions: Toothache (ED) Additional Instructions: Take your medications as prescribed. If you were prescribed antibiotics today, it is important that you take your medication to their entirety, do not skip any doses, do not finish them early. Follow-up with your primary care provider this week. Return to the emergency department with new or worsening symptoms. Such as fevers, chills, chest pain, shortness of breath, nausea, vomiting, dizziness, headache, vision changes, lethargy In case of emergency call 911 Please follow-up with a dentist if you do not have 1 you can reach out to the [facility] [phone] CT/CT facial bones w IV con IMPRESSION: Large dental caries in the right maxillary second molar. No soft tissue edema or focal fluid collection to suggest abscess. Prescriptions: New amoxicillin-pot clavulanate 875-125 mg tablet 1 tab PO BID 7 Days Qty: 14 0RF ketorolac 10 mg tablet 10 mg PO TID PRN (Reason: pain) 5 Days Qty: 15 0RF ondansetron 4 mg tablet,disintegrating 4 mg PO Q6H PRN (Reason: nausea and vomiting) Qty: 14 0RF No Action ondansetron 4 mg tablet,disintegrating 4 mg translingual ONCE Qty: 1 0RF prednisone 50 mg tablet 50 mg PO DAILY 5 Days Qty: 5 0RF amoxicillin-pot clavulanate 875-125 mg tablet 1 tab PO BID 10 Days Qty: 20 0RF ondansetron 8 mg tablet,disintegrating 8 mg PO Q8H Qty: 20 0RF acetaminophen 500 mg capsule 1,000 mg PO Q6H PRN (Reason: fever) Qty: 30 0RF Referrals: Physician,None [Primary Care Provider] - 2 days Stand Alone Forms: Work/School Release Print Language: Romansh
[2023-10-25 22:57] LABS: HCG Quantitative < 2 mIU/mL
[2023-10-25] MEDS: ondansetron HCL 4 MG/2 ML VIAL IVPUSH (23:14)
[2023-10-25] MEDS: Ketorolac Tromethamine 30 MG/ML VIAL IM (23:14)
[2023-10-25] MEDS: iohexoL 350 MG/ML 100 ML INFUS..BTL 85 ML IV (23:33)
[2023-10-26] MEDS: Metoclopramide HCl 10 MG/2 ML VIAL IVPUSH (00:10)
[2023-10-26] MEDS: diphenhydrAMINE HCL 50 MG/ML VIAL 25 MG IVPUSH (00:10)
[2023-10-26] MEDS: 0.9 % Sodium Chloride 1,000 ML 999 ML IV (00:11)
[2023-10-26 02:07] VITALS: BP 141/95; PULSE 64; RESP 18; TEMP 37.2; O2SAT 99
== END 2023-10-26 02:08 | disposition home or self-care (01) ==
PROVIDERS: Physician Assistant; Emergency Provider Emergency Medicine
DX: K08.89 Other specified disorders of teeth and supporting structures (principal); F17.210 Nicotine dependence, cigarettes, uncomplicated
CPT/HCPCS: 36415; 70487; 80053; 84702; 85025; 96372; 96374; 96375; 99284; J1200; J1885; J2270; J2405; J2765; Q9967

== ENCOUNTER 2023-12-18 10:01 | Outpatient (AMB) | payer BC, SELFPAY ==
--- NOTE | 2023-12-18 10:15 | AM.OFFWIN_ITS ---
Intake Vital Signs 12/18/23 10:17 Height 5 ft 6 in Weight 128 lb BMI 20.7 BP 122/80 Blood Pressure Location Rt brachial Position Sitting Pulse 91 Pulse Source Pulse Oximeter Temp 98.1 F Temp Source Oral Pulse Oximetry (%) 99 Oxygen Delivery Method Room Air Intake Visit Reasons: EP- blood coming from nipples, not preg. Intake Note: pt c/o bleeding nipples. First noticed last night Patient Tobacco Use Status: Former Tobacco user Allergies morphine Adverse Reaction (Severe, Verified 12/18/23 10:24) Anxiety latex Adverse Reaction (Verified 12/18/23 10:24) Hives trazodone Adverse Reaction (Verified 12/18/23 10:24) Nightmare Do you need a note to return to daycare/school/sports/work: Yes HPI HPI Comments History of Present Illness Details Patient is a 23-year-old female with a past medical history of pituitary gland tumor let is currently being monitored who is complaining of possibly months of bloody discharge from her right nipple. She states that she has noticed it more in the past couple of days but as she sits in thinks about it, she states she has noticed there has been blood on her bras for the last few months, randomly. She states she was able to elicit blood by squeezing her nipple last night. She states she thinks she feels some lumps in her breast. She also states she has a history of breast cancer in her family. Patient states she does not have a primary care doctor right now, she is trying to get one at [facility] Medical History Mood disorder PTSD (post-traumatic stress disorder) Social History Household Members: Friend(s) Housing: House Do you presently have visiting nurse or other home services: No Alcohol intake: never Comment: pt. aware of using precaution Patient Tobacco Use Status: Former Tobacco user Tobacco use type: Cigarette and Smokeless Tobacco Cigarette Packs Per Day: 0.25 Cigarettes Per Day: 5.0 e-Cigarette/Vaping Use: Currently Using Second Hand Smoke Exposure: No Substance Use Type: Marijuana service: No Sexual orientation: Straight/Heterosexual Review of Systems Const All systems reviewed & are unremarkable except as noted in HPI and below Physical Exam Vital Signs: Last Vital Signs Temp 98.1 F 12/18/23 10:17 Pulse 91 12/18/23 10:17 BP 122/80 12/18/23 10:17 Pulse Ox 99 12/18/23 10:17 Oxygen Delivery Method Room Air 12/18/23 10:17 BMI result Body Mass Index 20.7 Const General: cooperative, healthy appearing, comfortable, no acute distress and well developed Orientation/consciousness: patient oriented x3 Limitations: no limitations HEENT Head: Yes normal to inspection Ears: hearing grossly normal bilaterally General nose exam: Normal external nose present Face and sinus: Yes normal facial exam Eyes General: appearance normal, both eyes and all related structures Neck Neck: Yes normal visual inspection and Yes full ROM Chest Breast/axilla palpation: normal palpation of the breasts (Right side) and other (No nipple bloody or otherwise discharge noted, unable to elicit discharge) Resp Effort & Inspection: normal respiratory effort and able to speak in complete sentences Skin General skin exam: no rashes or lesions noted Neuro General: patient oriented x3 Extrem General: Yes normal to inspection Assessment & Plan Assessment & Plan (1) Bloody discharge from right nipple: Code(s): N64.52 - Nipple discharge Plan: As patient has no primary care doctor, she should go to the emergency room for a breast ultrasound and further workup. Her pituitary gland tumor could cause galactorrhea but should not cause bloody discharge. Physical exam was unremarkable. Called [facility] ED with expect Plan See above Coding Level of Care Code New Pt Level 5 (50309) Diagnoses Bloody discharge from right nipple N64.52
[2023-12-18 10:17] VITALS: BP 122/80; PULSE 91; TEMP 36.7; O2SAT 99; BMI 20.7
== END 2023-12-18 11:08 | disposition home or self-care (01) ==
PROVIDERS: Visit Provider Physician Assistant
DX: N64.52 Nipple discharge (principal)
CPT/HCPCS: 99213

== ENCOUNTER 2023-12-18 11:11 | Emergency (ER) | payer BC, SELFPAY ==
--- NOTE | ~2023-12-18 | US_ITS ---
EXAMINATION: US DIAGNOSTIC ULTRASOUND BREAST, 23-year-old female with bloody nipple discharge. CLINICAL INFORMATION: Rule out abscess COMPARISON: None available. TECHNIQUE: Ultrasound of the breast is performed with real-time dubose scale imaging and color Doppler. FINDINGS: There is no focal suspicious finding. There is no solid mass, architectural abnormality, duct ectasia, or edema in the soft tissue planes. Results are discussed with the patient at time of visit. US/US breast RT limited IMPRESSION: No abnormal findings based on the right breast ultrasound ASSESSMENT: BI-RADS 1 - Negative RECOMMENDATION 1. Patient should be managed based on the clinical impression. 2. Otherwise, routine annual screening mammography. This patient's information was entered into a reminder system with a target due date for their next mammogram. Electronically signed by: Ricardo Umaña MD 12/18/2023 02:58 PM EDT
[2023-12-18 11:17] VITALS: BP 140/80; PULSE 82; RESP 18; TEMP 36.6; O2SAT 99; BMI 23.4
--- NOTE | 2023-12-18 12:11 | ED_ITS ---
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 She was sent from the urgent Care/walk-in clinic. She states she has noticed brown or bloody spots in her bra for the last couple of months but has not thought much of it. She states last night she felt her bra was wet. She looked and noticed that there was a moderate amount of bright red blood coming out of her nipple. She was able to squeeze her breast and have more blood expressed. She has some associated pain in the right side of the breast where it feels like a bruise. She denies any swelling, skin changes. She reports feeling feverish and unwell this morning when she woke up so she went to the urgent care. She was referred here for further evaluation and treatment. Patient reports that she has not seen Neurology or had any PCP or follow-up for her pituitary macroadenoma in the last couple of years. She denies being on medications for this. She reports when she was younger she had significant weakness as it was in a wheelchair for 1 year. complaint: Right nipple bloody discharge Onset (ago): month(s) Location: chest Radiation: non-radiation Severity: mild Relieving factors: none Exacerbating factors: none Associated symptoms: denies other symptoms Treatments prior to arrival: none Related Data Home Medications ?Medication ?Instructions ?Recorded ?Confirmed lamotrigine 100 mg tablet 100 mg PO BID 12/18/23 quetiapine 50 mg tablet,extended 50 mg PO BEDTIME 12/18/23 release 24 hr Allergies Allergy/AdvReac Type Severity Reaction Status Date / Time morphine AdvReac Severe Anxiety Verified 12/18/23 11:19 latex AdvReac Hives Verified 12/18/23 11:19 trazodone AdvReac Nightmare Verified 12/18/23 11:19 Review of Systems Review of Systems: Yes all other systems are reviewed and are negative PMFSH Past Medical History Medical History Mood disorder PTSD (post-traumatic stress disorder) Social History Social History Household Members: Friend(s) Housing: House Do you presently have visiting nurse or other home services: No Alcohol intake: never Comment: pt. aware of using precaution Patient Tobacco Use Status: Former Tobacco user Tobacco use type: Cigarette and Smokeless Tobacco Cigarette Packs Per Day: 0.25 Cigarettes Per Day: 5.0 e-Cigarette/Vaping Use: Currently Using Second Hand Smoke Exposure: No Substance Use Type: Marijuana Advance Directives: No Advance Directives Information Provided: No service: No Sexual orientation: Straight/Heterosexual Physical Exam ED Vital Signs: Vital Signs - 24 hr 12/18/23 11:17 Temperature 97.8 F Pulse Rate 82 Respiratory Rate 18 Blood Pressure 140/80 H Pulse Oximetry 99 Oxygen Delivery Method Room Air BMI result Body Mass Index 23.4 Appearance: Alert. Oriented X3. No acute distress. Head: normocephalic, atraumatic. Eyes: Pupils equal, round and reactive to light. ENT: Pharynx normal. No tonsillar swelling or exudate. Neck: Normal inspection. Neck supple. CVS: Normal heart rate and rhythm. Pulses normal. Chest: Normal inspection, no skin changes of either breast. Right breast was with some mild tenderness at the 3 o'clock position without any associated masses. Thin, watery, brown discharge able to be expressed from the right nipple. Respiratory: No respiratory distress. Breath sounds normal. Abdomen: Soft and nontender. +BS x4 Skin: Skin warm and dry. Normal skin color. Normal skin turgor. No rashes. Extremities: No lower extremity edema. No joint swelling. Neuro/psych: Oriented X 3. No motor deficit. No sensory deficit. CN II-XII intact. Normal speech and cognition. Medical Decision Making Medical Decision Making MDM Narrative: 23-year-old female presents to the ER for evaluation bloody and brown right nipple discharge for the last several months, acutely worse last night. On examination there does not appear to be any overlying skin changes. Able to express a thin, brown discharge from the right nipple. Ultrasound was done in his normal today. She is neurologically intact without any severe headache, vision changes, weight gain. Consulted Dr. Pittman, recommending outpatient follow-up in the office. Importance of outpatient follow-up with her neurologist was expressed. She will call the office in [place] that she went to to see if she can still be seen there. She will follow up with PCP locally as well. We discussed worrisome signs and symptoms that should prompt urgent re-evaluation. Stable for discharge home Differential Diagnosis Differential Diagnoses: The differential diagnosis associated with the presentation includes Breast cancer, breast abscess, galactorrhea due to pituitary micro adenoma Consult Healthcare Provider Management of the patient was discussed with: Cup Machine Operator Dr. Pittman - outpatient follow up in the office Independent Interpretation I performed an independent interpretation of an: Ultrasound Interpretation: no visible abscess on U/S Radiology Impression Discussion of test interpretation with radiology: I have reviewed the radiologist's reading. Radiologist Impression: EXAMINATION: US DIAGNOSTIC ULTRASOUND BREAST, 23-year-old female with bloody nipple discharge. CLINICAL INFORMATION: Rule out abscess COMPARISON: None available. TECHNIQUE: Ultrasound of the breast is performed with real-time dubose scale imaging and color Doppler. FINDINGS: There is no focal suspicious finding. There is no solid mass, architectural abnormality, duct ectasia, or edema in the soft tissue planes. Results are discussed with the patient at time of visit. US/US breast RT limited IMPRESSION: No abnormal findings based on the right breast ultrasound ASSESSMENT: BI-RADS 1 - Negative RECOMMENDATION 1. Patient should be managed based on the clinical impression. 2. Otherwise, routine annual screening mammography. This patient's information was entered into a reminder system with a target due date for their next mammogram. External Record Review External record reviewed: Office record, Outpatient record, Prior outpatient labs and Prior outpatient radiology Prescription Management I considered prescription management with: Antibiotic Chronic Conditions Patient?s care impacted by: Other (Pituitary macroadenoma) Critical Care Time Critical Care Time Critical Care Time: No Discharge Plan Discharge Clinical Impression: Bloody discharge from right nipple Patient Disposition: Home, Self-Care Instructions: Nipple Discharge (ED) Additional Instructions: Your ultrasound today was normal. Recommend following up with your neurologist in [place]. You can also follow-up with Dr. Pittman from the general surgery office for your bloody discharge. It is important to establish care with a primary care doctor. Call for an appointment. If you develop new or worsening symptoms call 911 or come back to the ER for further evaluation. Prescriptions: No Action lamotrigine 100 mg tablet 100 mg PO BID quetiapine 50 mg tablet extended release 24 hr 50 mg PO BEDTIME ondansetron 4 mg tablet,disintegrating 4 mg translingual ONCE Qty: 1 0RF Referrals: [facility] [Provider Group] [facility] [Provider Group] [facility] [Provider Group] [facility] Stand Alone Forms: Work/School Release Print Language: Thai
[2023-12-18 15:16] VITALS: BP 140/80; PULSE 82; RESP 18; TEMP 36.6; O2SAT 99
== END 2023-12-18 15:17 | disposition home or self-care (01) ==
PROVIDERS: Emergency Provider Emergency Medicine
DX: N64.59 Other signs and symptoms in breast (principal); D35.2 Benign neoplasm of pituitary gland; Z87.891 Personal history of nicotine dependence
CPT/HCPCS: 76642; 99283; 99284

== ENCOUNTER 2024-02-23 09:30 | Outpatient (AMB) | payer BC, SELFPAY ==
[2024-02-23 10:00] VITALS: BP 106/74; PULSE 70; O2SAT 98
--- NOTE | 2024-02-23 10:00 | MHC.OFFWIV ---
Intake Vital Signs 02/23/24 10:00 Weight 130 lb BP 106/74 Blood Pressure Location Rt brachial Position Sitting Pulse 70 Pulse Source Pulse Oximeter Pulse Oximetry (%) 98 Oxygen Delivery Method Room Air Intake Visit Reasons: EP Pelvic abscess/growth Intake Note: Patient here for abscess in pelvic area which she noticed two days ago, she mentions it feels like its the size of a grape. Patient Tobacco Use Status: Former Tobacco user Allergies morphine Adverse Reaction (Severe, Verified 02/23/24 10:01) Anxiety latex Adverse Reaction (Verified 02/23/24 10:01) Hives trazodone Adverse Reaction (Verified 02/23/24 10:01) Nightmare Do you need a note to return to daycare/school/sports/work: No HPI EP Pelvic abscess/growth HPI Details This note is constructed using voice recognition software. While every effort has been made to ensure accuracy, director of clinical applications errors may have been included. The patient is a 23 year old female who presents to the clinic today with abscess to the right side of her perineum. She notes that this occurred approximately 2 days ago, she was able to get visualization using a mirror, and noticed that there was a head to it so she started warm compresses. She has made some improvement overall with the warm compresses and squeezing it, however is not completely resolve. She denies fever, chills, does report some discomfort. She is planning to be walking in [place] today, and is not interested in any procedures today. [facility] Medical History Mood disorder PTSD (post-traumatic stress disorder) Social History Household Members: Friend(s) Housing: House Do you presently have visiting nurse or other home services: No Alcohol intake: never Comment: pt. aware of using precaution Patient Tobacco Use Status: Former Tobacco user Tobacco use type: Cigarette and Smokeless Tobacco Cigarette Packs Per Day: 0.25 Cigarettes Per Day: 5.0 e-Cigarette/Vaping Use: Currently Using Second Hand Smoke Exposure: No Substance Use Type: Marijuana service: No Sexual orientation: Straight/Heterosexual Review of Systems Const All systems reviewed & are unremarkable except as noted in HPI and below Physical Exam Vital Signs: Last Vital Signs Pulse 70 02/23/24 10:00 BP 106/74 02/23/24 10:00 Pulse Ox 98 02/23/24 10:00 Oxygen Delivery Method Room Air 02/23/24 10:00 Const General: cooperative, healthy appearing, comfortable, no acute distress and well developed Orientation/consciousness: patient oriented x3 Limitations: no limitations Resp Effort & Inspection: normal respiratory effort and able to speak in complete sentences Skin Other: 1 cm fluctuant cyst to right-sided perineum, with out warmth, with slight erythema over the area. There is an obvious head to this cystic structure. Neuro General: patient oriented x3 Assessment & Plan Assessment & Plan (1) Abscess: Code(s): L02.91 - Cutaneous abscess, unspecified Plan: I&D advised, however patient has declined at this time. Advised continuation of warm compresses, and we will initiate antibiotic therapy. Advised patient to follow up with worsening symptoms or failure to resolve. Plan See above for full details and plan. Medications: New sulfamethoxazole-trimethoprim 800-160 mg (Bactrim DS) 1 tab PO BID 5 days 10 tabs 0RF Coding Level of Care Code Est Pt Level 3 (36660) Diagnoses Abscess L02.91
== END 2024-02-23 10:43 | disposition home or self-care (01) ==
PROVIDERS: Visit Provider Registered Nurse
DX: L02.91 Cutaneous abscess, unspecified (principal)

== ENCOUNTER → 2024-02-23 09:30 | Outpatient (BNVA) | payer BC, SELFPAY | PROVIDERS: Visit Provider Registered Nurse ==

== ENCOUNTER 2024-04-12 09:06 | Outpatient (AMB) | payer BC, SELFPAY ==
[2024-04-12 09:08] VITALS: BP 124/82; PULSE 80; TEMP 36.6; O2SAT 99; BMI 26.0
--- NOTE | 2024-04-12 09:08 | AM.OFFWIN_ITS ---
Intake Vital Signs 04/12/24 09:08 Height 5 ft 2 in Weight 142 lb 2 oz BMI 26.0 BP 124/82 Blood Pressure Location Lt brachial Position Sitting Pulse 80 Pulse Source Pulse Oximeter Temp 97.8 F Temp Source Temporal Artery Scan Pulse Oximetry (%) 99 Oxygen Delivery Method Room Air Intake Visit Reasons: EP Stomach issues Intake Note: Pt presents to the office today for c/o diarrhea,nausea, and fatigue x4 days. Patient Tobacco Use Status: Former Tobacco user Allergies morphine Adverse Reaction (Severe, Verified 04/12/24 09:11) Anxiety latex Adverse Reaction (Verified 04/12/24 09:11) Hives trazodone Adverse Reaction (Verified 04/12/24 09:11) Nightmare HPI EP Stomach issues HPI Details This note is constructed using voice recognition software. While every effort has been made to ensure accuracy, hop farm worker errors may have been included. The patient is a 23 year old female who presents to the clinic today with nausea for the past 4 days with diarrhea since this am. She denies fever, chills, vomiting. She has general cramping in her abdomen prior to the diarrhea episodes, which subsides. She also has epigastric tenderness since symptom onset. [facility] Medical History Mood disorder PTSD (post-traumatic stress disorder) Social History Household Members: Friend(s) Housing: House Do you presently have visiting nurse or other home services: No Alcohol intake: never Comment: pt. aware of using precaution Patient Tobacco Use Status: Former Tobacco user Tobacco use type: Cigarette and Smokeless Tobacco Cigarette Packs Per Day: 0.25 Cigarettes Per Day: 5.0 e-Cigarette/Vaping Use: Currently Using Second Hand Smoke Exposure: No Substance Use Type: Marijuana service: No Sexual orientation: Straight/Heterosexual Review of Systems Const All systems reviewed & are unremarkable except as noted in HPI and below Physical Exam Vital Signs: Last Vital Signs Temp 97.8 F 04/12/24 09:08 Pulse 80 04/12/24 09:08 BP 124/82 04/12/24 09:08 Pulse Ox 99 04/12/24 09:08 Oxygen Delivery Method Room Air 04/12/24 09:08 BMI result Body Mass Index 26.0 Const General: cooperative, healthy appearing, comfortable, no acute distress and well developed Orientation/consciousness: patient oriented x3 Limitations: no limitations HEENT Head: Yes normal to inspection Neck Neck: Yes normal visual inspection Resp Effort & Inspection: normal respiratory effort and able to speak in complete sentences Auscultation: clear to auscultation bilaterally Cardio Jugular venous distension: no JVD Rate: regular rate Rhythm: regular rhythm Heart sounds: S1 normal heart sound present, S2 normal heart sound present and normal S1 and S2 GI Inspection: Yes normal to inspection Palpation (GI): Soft to palpation and Tenderness to palpation present (GI) in the epigastrum Percussion: Yes normal to percussion Auscultation: normal bowel sounds Skin General skin exam: no rashes or lesions noted Neuro General: patient oriented x3 Psych Appearance: grossly normal Attitude: cooperative Assessment & Plan Assessment & Plan (1) Viral gastroenteritis: Code(s): A08.4 - Viral intestinal infection, unspecified Plan: Advised avoidance acidic foods, carbonated beverages, large meals, or anything to eat or drink within 2-3 hours of lying down. Famotidine prescribed for at least 2 weeks, for symptomatic management and then p.r.n. after that. Zofran prescribed for symptomatic management of nausea. Advised adequate hydration methods. Advised patient to follow up worsening or failure to resolve. Plan See above for full details and plan. Medications: New famotidine 20 mg PO DAILY 14 days 14 tabs 0RF ondansetron 4 mg PO Q8H 3 days PRN 9 tabs 0RF nausea and vomiting Coding Level of Care Code Est Pt Level 3 (59183) Diagnoses Viral gastroenteritis A08.4
== END 2024-04-12 10:47 | disposition home or self-care (01) ==
PROVIDERS: Visit Provider Registered Nurse
DX: A08.4 Viral intestinal infection, unspecified (principal)

== ENCOUNTER 2024-07-16 08:25 | Outpatient (AMB) | payer BC, SELFPAY ==
--- OUTSIDE RECORDS SUMMARY | 2024-07-16 08:41 | XMS_ITS | Encounter Summary ---
Author Organization [facility] Address [address] [place] [address] Phone Care Team Providers Care Supply Cataloguer Name Role Phone Axel Friedman MD Primary Care Provider [phone] Encounter Details Date Type Department Care Team (Late st Contact Info) Description 02/16/2013 Documentation [facility] [place] Medicine [address] [place], [place] [phone] Family Medicine, Physician [address] [place], [place] [address] Social History Tobacco Use Types Packs/Day Years Used Date Smoking Tobacco: Never Assessed Comments Unknown Sex and Gender Information Value Date Recorded Sex Assigned at Not on file Legal Sex Female 5:22 PM EDT Gender Identity Not on file Sexual Orientation Not on file documented as of this encounter Plan of Treatment Not on file documented as of this encounter Visit Diagnoses Not on filedocumented in this encounter Care Teams Supply Cataloguer Relationship Specialty Start Date End Date Axel Friedman MD [address] [place] [address] [place] [address] PCP - General 12/06/16 10/17/22 documented as of this encounter
--- OUTSIDE RECORDS SUMMARY | 2024-07-16 08:41 | XMS_ITS | Encounter Summary ---
Author Organization [facility] Address [address] [place] [address] Phone Care Team Providers Care Contact Center Professional Name Role Phone Axel Friedman MD Primary Care Provider [phone] Encounter Details Date Type Department Care Team (Late st Contact Info) Description 09/04/2010 [place] [facility] [place] [address] [place], [place] [phone] Family Medicine, Physician [address] [place], [place] [phone] Social History Tobacco Use Types Packs/Day Years [...] on filedocumented in this encounter Care Teams Contact Center Professional Relationship Specialty Start Date End Date Axel Friedman MD [address] [place] [address] [place] [address] PCP - General 12/06/16 10/17/22 documented as of this encounter
--- OUTSIDE RECORDS SUMMARY | 2024-07-16 08:41 | XMS_ITS | Encounter Summary ---
Author Organization [facility] Address [address] [place] [address] Phone Care Team Providers Care Freight Loading Supervisor Name Role Phone Axel Friedman MD Primary Care Provider [phone] Encounter Details Date Type Department Care Team (Late st Contact Info) Description 12/12/2016 Conversion Encounter [facility] [address] [place] [address] Social History Tobacco Use Types Packs/Day Years Used Date Smoking Tobacco: Unknown Comments:Unknown if ever smo ked Comments Unknown Sex and Gender Information Value Date Recorded Sex Assigned at Not on file Legal Sex Female 5:22 PM EDT Gender Identity Not on file Sexual Orientation Not on file documented as of this encounter Plan of Treatment Not on file documented as of this encounter Visit Diagnoses Not on filedocumented in this encounter Care Teams Freight Loading Supervisor Relationship Specialty Start Date End Date Axel Friedman MD [address] [place] [address] PCP - General 12/06/16 10/17/22 documented as of this encounter
--- OUTSIDE RECORDS SUMMARY | 2024-07-16 08:41 | XMS_ITS | Clinical Summary ---
Author Organization [facility] Address [address] [place] [address] Phone Care Team Providers Care Airport Driver Name Role Phone Unavailable Primary Care Provider Unavailabl e Immunizations Immunization Administration Dates Next Due DTaP 5 12/06/2003, 1,05/09/1999,03/07,1998 HPV, Quadrivalent 05/24/2011,01/21/2011,11/17/19 11 Hep A, ped/adol 09/30/2014,03/03/2014 Hep B, ped/adol 08/06/1999,05/09/1999,1998 Hib (PRP-T) 01/29/2000, 0,03/07/1999,12/29 IPV 12/06/2003, 0,03/07/1999,12/29 Influenza, injectable, quadr ivalent, preservative free 09/10/2016,03/30/2015,12/31/2013,02/15 MMR 12/06/2003,10/29/1999 Meningococcal Conj (Menactra) MCV4P 07/07/2015,0 12/31/2011 Pneumococcal Conjugate 05/05/2000,01/30/2000,06/1999 Tdap 11/16/2010 Varicella 09/08/2007,10/29/1999 Family History Relation Name Status Comments Father Father: Maegan hill Maternal Grandfather Materna l uncle: Leukemia Mother Mother: Maegan hill, hyperlipidemia, Migraines Other No family histo ry of Dental caries, No family history of Sudden /[place] under age 55, No family history of CVA (Stroke), No family history of Thrombophilia, Family history of Heart disease Paternal Grandfather Tai rueda grandfather: Diabetes mellitus Paternal Grandmother Tai rueda grandmother: Rheumatoid arthritis Social History Tobacco Use Types Packs/Day Years Used Date Smoking Tobacco: Unknown Comments:Unknown if ever smo ked Comments Unknown Sex and Gender Information Value Date Recorded Sex Assigned at Not on file Legal Sex Female 5:22 PM EDT Gender Identity Not on file Sexual Orientation Not on file Last Filed Vital Signs Vital Sign Reading Time Taken Comments Blood Pressure 106/74 09/10/2016 12:00 AM EDT Pulse 79 08/27/2016 12:00 AM EDT Temperature 36.9 ??C (98.4 ??F) 08/27/2016 12:00 AM E DT Respiratory Rate - - Oxygen Saturation - - Inhaled Oxygen Concentration - - Weight 52.7 kg (116 lb 3.2 oz) 09/10/2016 12:00 AM EDT Height 159.4 cm (5' 2.75 ) 09/10/2016 12:00 AM E DT Body Mass Index 20.75 09/10/2016 12:00 AM EDT Plan of Treatment Health Maintenance Due Date Last Done Comments Consider Men B Vaccine (1 of 2 - Bexsero 2-dose series) 2014 DTaP,Tdap,and Td Vaccines (7 - Td or Tdap) 11/16/2020 11/16/2010, 12/06/2003, 05/05/2000, Additional history exists Influenza Vaccines (#1) 2023 09/11/19 17, 03/30/2015, 12/31/2013, Additional history exists COVID-19 Vaccine ( - 2023- season) 2023 Hepatitis B Vaccines Completed 08/06/1999, 05/09/1999, 1998 HIB Vaccines Completed 01/29/2000, 04/28, 03/07/1999, Additional history exists Pneumococcal Vaccine Completed 05/05/2000, 01/30/2000, 01/29/2000 IPV Vaccines Completed 12/06/2003, 06/1999, 03/07/1999, Additional history exists MMR Vaccines Completed 12/06/2003, 10/29/1999 Varicella Vaccines Completed 09/08/2007, 10/29/1999 HPV Vaccines Completed 05/24/2011, 12/28, 11/16/2010 Hepatitis A Vaccines Completed 09/30/2014, 03/03/20 14 Meningococcal Vaccine Completed 07/07/2015, 012 Men B Vaccine Aged Out No longer elig ible based on patient's age to complete this topic Procedures * Due to [facility] law, this organization might not be sharing sensitive test results. Procedure Name Priority Date/Time Associated Diagnosis Comments CHLAMYDIA AND GONORRHEA, AMPLIFIED Routine 09/11/2016 1:35 PM EDT from Last 3 Months or Most Recently Relevant to Health Maintenance Results * Due to [place] [employer] law, this organization might not be sharing sensitive test results. * Chlamydia and Gonorrhoea, Amplified (09/11/2016 1:35 PM EDT) Pathologist [facility] URINE CHLAMYDIA AMP PROBE NEGATIVE [facility] Comment: No Chlamydia Trachomatis RNA detected in this patient's sample (REFERENCE RANGE/NORMAL VALUE: NOT DETECTED) URINE GC AMP PROBE NEGATIVE [facility] Comment: No Neisseria Gonorrhoeae RNA detected in this patient's sample (REFERENCE RANGE/NORMAL VALUE: NOT DETECTED) NOTE: This test uses fertilizer applicator-mediated amplification method to detect rRNA from C.Trachomatis and N.Gonorrhoeae. A negative result does not preclude infection. In the case of a negative urine result, testing of an endocervical(female) or urethral(male) specimen is recommended if there is high clinical suspicion of infection. The performance characteristics of this test have not been evaluated in children. The Aptima Combo2 assay is not intended for the evaluation of suspected sexual abuse or for other medico-legal indications. The ordering provider should assess if the patient had consensual sex without risk of sexual abuse. Consult the [facility] if needed. Contact phone number . Therapeutic failure or success cannot be determined with the Aptima Combo2 assay since nucleic acid may persist following appropriate antimicrobial therapy. The Centers for Disease Control and Prevention (CDC) recommends confirmatory retesting using culture or a different nucleic acid amplification test when positive results occur, if indicated. Testing performed or reported by [facility], a Service of [facility], [facility] [address], [place] [address] CLIA ??[id number] Bharath Perez MD, PhD, Educational Paraprofessional 09/11/2016 1:35 PM EDT Narrative [facility] - 09/11/2016 1:35 PM EDT URINE CHLAMYDIA GC AMP PROBE us Axel Friedman MD LAB MICROBIOLOGY - GENERAL OR DERABLES Final Result [facility] [address] [place] [address], from Last 3 Months or Most Recently Relevant to Health Maintenance Insurance [facility]
--- OUTSIDE RECORDS SUMMARY | 2024-07-16 08:42 | XMS_ITS | Encounter Summary ---
Author Organization [facility] Address [address] [place] [address] Phone Care Team Providers Care Extruder Operator Multiple Name Role Phone Axel Friedman MD Primary Care Provider [phone] Encounter Details Date Type Department Care Team (Late st Contact Info) Description 06/03/2016 Documentation [facility] [place] [address] [place], [place] [phone] Family Medicine, Physician [address] [place], [place] [address] Social History Tobacco Use Types Packs/Day Years [...] on filedocumented in this encounter Care Teams Extruder Operator Multiple Relationship Specialty Start Date End Date Axel Friedman MD [address] [place] [address] [place] [address] PCP - General 12/06/16 10/17/22 documented as of this encounter
--- OUTSIDE RECORDS SUMMARY | 2024-07-16 08:42 | XMS_ITS | Encounter Summary ---
Author Organization [facility] Address [address] [place] [address] Phone Care Team Providers Care Head Machinist Name Role Phone Axel Friedman MD Primary Care Provider [phone] Encounter Details Date Type Department Care Team (Late st Contact Info) Description 08/01/2009 Documentation [facility] [place] Medicine [address] [place], [place] [phone] Family Medicine, Physician [address] [place], [place] [address] Social History Tobacco Use Types Packs/Day Years [...] on filedocumented in this encounter Care Teams Head Machinist Relationship Specialty Start Date End Date Axel Friedman MD [address] [place] [address] [place] [address] PCP - General 12/06/16 10/17/22 documented as of this encounter
--- OUTSIDE RECORDS SUMMARY | 2024-07-16 08:42 | XMS_ITS | Encounter Summary ---
Author Organization [facility] Address [address] [place] [address] Phone Care Team Providers Care Supervisor Aircraft Maintenance Name Role Phone Axel Friedman MD Primary Care Provider [phone] Encounter Details Date Type Department Care Team (Late st Contact Info) Description 07/31/2009 Documentation [facility] [place] [address] [place], [place] [phone] Family Medicine, Physician [address] [place], [place] [address] Social History Tobacco Use Types Packs/Day Years [...] on filedocumented in this encounter Care Teams Supervisor Aircraft Maintenance Relationship Specialty Start Date End Date Axel Friedman MD [address] [place] [address] [place] [address] PCP - General 12/06/16 10/17/22 documented as of this encounter
--- OUTSIDE RECORDS SUMMARY | 2024-07-16 08:42 | XMS_ITS | Encounter Summary ---
Author Organization [facility] Address [address] [place] [address] Phone Care Team Providers Care Manager Managed Backup Services Name Role Phone Axel Friedman MD Primary Care Provider [phone] Encounter Details Date Type Department Care Team (Late st Contact Info) Description 06/30/2009 Documentation [facility] [place] [address] [place], [place] [phone] Family Medicine, Physician [address] [place], [place] [address] Social History Tobacco Use Types Packs/Day Years [...] on filedocumented in this encounter Care Teams Manager Managed Backup Services Relationship Specialty Start Date End Date Axel Friedman MD [address] [place] [address] [place] [address] PCP - General 12/06/16 10/17/22 documented as of this encounter
--- OUTSIDE RECORDS SUMMARY | 2024-07-16 08:42 | XMS_ITS | Encounter Summary ---
Author Organization [facility] Address [address] [place] [address] Phone Care Team Providers Care Call Center Support Representative Name Role Phone Axel Friedman MD Primary Care Provider [phone] Encounter Details Date Type Department Care Team (Late st Contact Info) Description 08/27/2016 [place]ation [facility] [place] [address] [place], [place] [phone] Family Medicine, Physician [address] [place], [place] [address] Social History Tobacco Use Types Packs/Day Years [...] on filedocumented in this encounter Care Teams Call Center Support Representative Relationship Specialty Start Date End Date Axel Friedman MD [address] [place] [address] [place] [address] PCP - General 12/06/16 10/17/22 documented as of this encounter
--- OUTSIDE RECORDS SUMMARY | 2024-07-16 08:42 | XMS_ITS | Encounter Summary ---
Author Organization [facility] Address [address] [place] [address] Phone Care Team Providers Care It Service Technician Name Role Phone Axel Friedman MD Primary Care Provider [phone] Encounter Details Date Type Department Care Team (Late st Contact Info) Description 10/06/2014 Documentation [facility] [place] Family Medicine [address] [place], [place] [phone] Family Medicine, Physician [address] [place], [place] [address] Social History Tobacco Use Types Packs/Day Years [...] on filedocumented in this encounter Care Teams It Service Technician Relationship Specialty Start Date End Date Axel Friedman MD [address] [place] [address] [place] [address] PCP - General 12/06/16 10/17/22 documented as of this encounter
[2024-07-16 08:57] VITALS: BP 110/80; PULSE 66; TEMP 36.9; O2SAT 98; BMI 26.0
--- NOTE | 2024-07-16 08:57 | MHC.OFFWIV ---
Intake Vital Signs 07/16/24 08:57 Height 5 ft 2 in Weight 142 lb BMI 26.0 BP 110/80 Blood Pressure Location Lt brachial Position Sitting Pulse 66 Pulse Source Pulse Oximeter Temp 98.4 F Temp Source Oral Pulse Oximetry (%) 98 Oxygen Delivery Method Room Air Intake Visit Reasons: EP ?strep Intake Note: Patient here for sore throat and fever that started yesterday morning. Patient Tobacco Use Status: Former Tobacco user Allergies morphine Adverse Reaction (Severe, Verified 07/16/24 08:59) Anxiety latex Adverse Reaction (Verified 07/16/24 08:59) Hives trazodone Adverse Reaction (Verified 07/16/24 08:59) Nightmare Do you need a note to return to daycare/school/sports/work: Yes HPI HPI Comments History of Present Illness Details History - The patient is a 23-year-old female presenting with symptoms suggestive of strep throat for 2 days. - The symptoms include sweating, chills, sore throat, pain with swallowing, with initial onset noted as of yesterday morning. - She developed fever of 102F overnight last night. - A sensation of throat fullness and presence of white patches was reported as persistent throat discomfort was noted. 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 - Notably, she is a mouth breather, potentially complicating her throat symptoms. Physical Exam General: Cooperative, healthy appearing, comfortable and no acute distress Orientation/consciousness: Patient oriented x3 Limitations: No limitations Head: Normal to inspection Ears: Hearing grossly normal bilaterally, external ears normal Nose: Normal external nose present, Normal nares present and No nasal discharge present Face and sinus: Normal facial exam Mouth: Normal oral and palatal mucosa present and moist mucous membranes Throat: Yes tonsils normal, Yes uvula midline. Posterior oropharynx erythema,exudates noted bilaterally Eyes: Appearance normal, both eyes and all related structures Neck: Normal visual inspection, cervical lymph node ttp Respiratory: Normal respiratory effort, able to speak in complete sentences, no respiratory distress, not tachypneic, no tripod positioning and no use of accessory muscles Skin: No rashes or lesions noted Neuro: Patient oriented x3 Extremities: Normal to inspection and Yes no clubbing, cyanosis or edema [facility] Medical History Mood disorder PTSD (post-traumatic stress disorder) Social History Household Members: Friend(s) Housing: House Do you presently have visiting nurse or other home services: No Alcohol intake: never Comment: pt. aware of using precaution Patient Tobacco Use Status: Former Tobacco user Tobacco use type: Cigarette and Smokeless Tobacco Cigarette Packs Per Day: 0.25 Cigarettes Per Day: 5.0 e-Cigarette/Vaping Use: Currently Using Second Hand Smoke Exposure: No Substance Use Type: Marijuana service: No Sexual orientation: Straight/Heterosexual Review of Systems Const All systems reviewed & are unremarkable except as noted in HPI and below Physical Exam Vital Signs: Last Vital Signs Temp 98.4 F 07/16/24 08:57 Pulse 66 07/16/24 08:57 BP 110/80 07/16/24 08:57 Pulse Ox 98 07/16/24 08:57 Oxygen Delivery Method Room Air 07/16/24 08:57 BMI result Body Mass Index 26.0 Assessment & Plan Assessment & Plan (1) Acute streptococcal pharyngitis: Code(s): J02.0 - Streptococcal pharyngitis Plan: VSS, pt well appearing and PE remarkable for exudates in posterior oropharynx, positive strep test in office. I will commence treatment for streptococcal pharyngitis with Amoxicillin to be taken every 12 hours for a 10-day course. Symptom management includes Ibuprofen 600 mg every six hours and Acetaminophen, potentially up to 1 gram, every eight hours for fever; spacing these medications appropriately is recommended to enhance tolerability while targeting symptom control. The patient requires hydration and rest, and I have advised a work absence note for two days to prevent contagion until antibiotics achieve effective resolution of infection. The management plan is specific to alleviating her primary symptoms and restoring health quickly while being vigilant for adverse drug interactions or reactions. Patient was informed and verbally consented to the use of an ambient scribe for clinic note documentation during this visit Medications: New amoxicillin 500 mg PO Q12H 20 tabs 0RF Coding Level of Care Code New Pt Level 3 (17945) Diagnoses Acute streptococcal pharyngitis J02.0
== END 2024-07-16 09:22 | disposition home or self-care (01) ==
PROVIDERS: Visit Provider Physician Assistant
DX: Z13.9 Encounter for screening, unspecified (principal); J02.0 Streptococcal pharyngitis

== ENCOUNTER → 2024-07-16 08:25 | Outpatient (BNVA) | payer BC, SELFPAY | PROVIDERS: Visit Provider Physician Assistant | DX: J02.0 Streptococcal pharyngitis (principal) | CPT/HCPCS: 87880 ==

== ENCOUNTER 2024-08-03 17:18 | Emergency (ER) | payer BC, SELFPAY ==
[2024-08-03 17:25] VITALS: BP 143/99; PULSE 69; RESP 19; TEMP 36.6; O2SAT 98; BMI 24.1
[2024-08-03 17:39] LABS: MANUAL DIFF FLAG NO
[2024-08-03 17:44] LABS: Prothrombin Time 12.1 SEC (10.9-12.4)
[2024-08-03 17:58] LABS: Alanine Aminotransferase 16 U/L (0-31); Albumin Level 5.1 g/dL (3.5-5.0); Alkaline Phosphatase 91 U/L (39-117); Anion Gap 13 (12-20); Aspartate Amino Transferase 25 U/L (5-31); Bilirubin Direct 0.5 mg/dL (0.0-0.5); Bilirubin Total 1.9 mg/dL (0.0-1.0); Blood Urea Nitrogen 11 mg/dL (9-16); Calcium 11.1 mg/dL (8.4-10.2); Carbon Dioxide 25 mmol/L (22-29); Chloride 107 mmol/L (96-108); Creatinine Clr Calc Pharmacy 79.1; Estimated Glomerular Filt Rate > 60; Glucose Random 103 mg/dL (60-115); Lipase 13 U/L (8-78); Potassium 3.9 mmol/L (3.3-5.1); Sodium 141 mmol/L (135-145)
[2024-08-03 18:00] LABS: Basophils Absolute Auto 0.1 X10*3/uL (0.0-0.2); Basophils Percent Auto 0.5 % (0-2); Eosinophils Percent Auto 0.4 % (0-4); Hemoglobin 14.2 g/dl (12.0-16.0); Imm Gran Abs Auto 0.03 X10*3/uL (0.00-0.03); Imm Gran Pct Auto 0.3 % (0.0-0.4); Lymphocytes Absolute Auto 2.5 X10*3/uL (1.2-4.9); Lymphocytes Percent Auto 27.1 % (20-40); Mean Corpuscular HGB Conc 34.6 g/dl (31.0-35.0); Mean Corpuscular Hemoglobin 30.5 pg (27.0-33.0); Mean Corpuscular Volume 88.2 fL (80.0-98.0); Mean Platelet Volume 9.8 fL (9.4-12.3); Monocytes Absolute Auto 0.5 X10*3/uL (0.1-1.2); Monocytes Percent Auto 5.5 % (2-11); Neutrophils Percent Auto 66.2 % (45-73); Platelet Count 302 X10*3/uL (160-400); Red Blood Count 4.65 X10*6/uL (4.20-5.50); Red Cell Distribution Width 12.2 % (11.0-16.0); White Blood Count 9.1 X10*3/uL (4.8-10.8)
[2024-08-03 18:19] LABS: Influenza A PCR NEGATIVE (Negative); Influenza B PCR NEGATIVE (Negative); Resp Syncy Virus RNA Qual PCR NEGATIVE (Negative); SARS COV2 PCR INHOUSE NEGATIVE (Negative)
[2024-08-03 18:57] VITALS: BP 125/81; PULSE 84; RESP 18; TEMP 36.8; O2SAT 97
[2024-08-03 19:11] LABS: Appearance Urine Cloudy; Color Urine Yellow; Glucose Urine UA Negative (Negative); Leukocyte Esterase Urine Negative (Negative); Nitrite Urine Negative (Negative); Specific Gravity - Urine >= 1.030 (1.005-1.025); UPreg QC Valid YES; Urine Blood Negative (Negative); Urine Ketones 80 mg/dL (Negative); Urine Pregnancy NEGATIVE (NEGATIVE); Urine Protein Trace mg/dL (Neg-Trace)
--- OUTSIDE RECORDS SUMMARY | 2024-08-03 19:27 | XMS_ITS | Encounter Summary ---
Author Organization [facility] Address [address] [place] [address] Phone Care Team Providers Care Wafer Line Worker Name Role Phone Axel Friedman MD Primary Care Provider [phone] Encounter Details Date Type Department Care Team (Late st Contact Info) Description 12/12/2016 Conversion Encounter [facility] [address] [place] [address] Social History Tobacco Use Types Packs/Day Years [...] on filedocumented in this encounter Care Teams Wafer Line Worker Relationship Specialty Start Date End Date Axel Friedman MD [address] [place] [address] PCP - General 12/06/16 10/17/22 documented as of this encounter
--- OUTSIDE RECORDS SUMMARY | 2024-08-03 19:27 | XMS_ITS | Clinical Summary ---
Author Organization [facility] Address [address] [place] [address] Phone Care Team Providers Care Resizer Operator Name Role Phone Unavailable Primary Care Provider [...] Dental caries, No family history of Sudden /NM under age 55, No family history of [...] Health Maintenance Due Date Last Done Comments DTaP,Tdap,and Td Vaccines (7 - Td or Tdap) 11/16/2020 11/16/2010, 12/06/2003, 05/05/2000, Additional history exists Influenza Vaccines (#1) 2023 09/11/19 17, 03/30/2015, 12/31/2013, Additional history exists COVID-19 Vaccine ( season) 2023 Hepatitis B Vaccines Completed 08/06/1999, [...] Men B Vaccine Aged Out No longer kath pena based on patient's age to complete this topic Procedures * Due to [place] [employer] law, this organization might not be sharing sensitive test results. Procedure Name Priority Date/Time Associated Diagnosis Comments CHLAMYDIA AND GONORRHEA, AMPLIFIED Routine 09/11/2016 1:35 PM EDT from Last 3 Months or Most Recently Relevant to Health Maintenance Results * Due to [place] [employer] law, this organization might not be sharing sensitive test results. * Chlamydia and Gonorrhoea, Amplified (09/11/2016 1:35 PM EDT) Pathologist [facility] URINE CHLAMYDIA AMP PROBE NEGATIVE [facility] Comment: No Chlamydia Trachomatis RNA detected in this patient's sample (REFERENCE RANGE/NORMAL VALUE: NOT DETECTED) URINE GC AMP PROBE NEGATIVE [facility] Comment: No Neisseria Gonorrhoeae RNA detected in this patient's sample (REFERENCE RANGE/NORMAL VALUE: NOT DETECTED) NOTE: This test uses stagecraft professor-mediated amplification method to detect rRNA from C.Trachomatis [...] without risk of sexual abuse. Consult the [facility] if needed. Contact phone number . Therapeutic failure or success cannot be determined with the Aptima Combo2 assay since nucleic acid may persist following appropriate antimicrobial therapy. The Centers for Disease Control and Prevention (CDC) recommends confirmatory retesting using culture or a different nucleic acid amplification test when positive results occur, if indicated. Testing performed or reported by [facility], a Service of [facility], [place] [address] CLIA ??[id number] Bharath Perez MD, PhD, Dust Box Worker 09/11/2016 1:35 PM EDT Narrative [facility] - 09/11/2016 1:35 PM EDT URINE CHLAMYDIA GC AMP PROBE us Axel Friedman MD LAB MICROBIOLOGY - GENERAL OR DERABLES Final Result [facility] [address] [place] [address], from Last 3 Months or Most Recently Relevant to Health Maintenance Insurance [facility] NON PCC
--- OUTSIDE RECORDS SUMMARY | 2024-08-03 19:27 | XMS_ITS | Encounter Summary ---
Author Organization [facility] Address [address] [place] [address] Phone Care Team Providers Care Store Standards Associate Name Role Phone Axel Friedman MD Primary Care Provider [phone] Encounter Details Date Type Department Care Team (Late st Contact Info) Description 06/30/2009 Documentation [facility] [place] [address] [place], [place] [id number] Family Medicine, Physician [address] [place], [place] [address] Social History Tobacco Use Types Packs/Day Years [...] on filedocumented in this encounter Care Teams Store Standards Associate Relationship Specialty Start Date End Date Axel Friedman MD [address] [place] [address] [place] [address] PCP - General 12/06/16 10/17/22 documented as of this encounter
--- OUTSIDE RECORDS SUMMARY | 2024-08-03 19:27 | XMS_ITS | Encounter Summary ---
Author Organization [facility] Address [address] [place] [address] Phone Care Team Providers Care Python Django Developer Name Role Phone Axel Friedman MD Primary Care Provider [phone] Encounter Details Date Type Department Care Team (Late st Contact Info) Description 09/04/2010 Documentation [facility] [place] [address] [place], [place] [phone] Family Medicine, Physician [address] [place], [place] [address] Social History Tobacco Use Types Packs/Day Years [...] on filedocumented in this encounter Care Teams Python Django Developer Relationship Specialty Start Date End Date Axel Friedman MD [address] [place] [address] [place] [address] PCP - General 12/06/16 10/17/22 documented as of this encounter
--- OUTSIDE RECORDS SUMMARY | 2024-08-03 19:27 | XMS_ITS | Encounter Summary ---
Author Organization [facility] Address [address] [place] [address] Phone Care Team Providers Care Powder Line Repairer Name Role Phone Axel Friedman MD Primary Care Provider [phone] Encounter Details Date Type Department Care Team (Late st Contact Info) Description 02/16/2013 Documentation [facility] [place] Medicine [address] [place], [place] [phone] Family Medicine, Physician [address] [place], [place] [address] Social History Tobacco Use Types Packs/Day Years [...] on filedocumented in this encounter Care Teams Powder Line Repairer Relationship Specialty Start Date End Date Axel Friedman MD [address] [place] [address] [place] [address] PCP - General 12/06/16 10/17/22 documented as of this encounter
--- NOTE | 2024-08-03 19:28 | ED.NAVMDI ---
HPI - Nausea/Vomiting/Diarrhea General Chief complaint: Abdominal Pain Stated complaint: Abdominal pain/Sent from UC Time Seen by Provider: 08/03/24 19:11 Source: patient Mode of arrival: ambulatory Limitations: no limitations History of Present Illness ED Provider: Dr. Bello Bradley HPI Narrative: 23-year-old female with a history of anxiety, bipolar disorder, insomnia who presents emergency department for evaluation of nausea, diarrhea x5 days. Patient states that she has constant nausea in his only had 1 or 2 episodes of vomiting. She states that she has been able to drink liquids but not able to eat food. Patient also complains of 3-6 episodes of liquidy diarrhea. She states the diarrhea has now turned black. She was not noticed any blood in the diarrhea. Patient was also complaining of abdominal pain. She describes the pain is a sharp, pressure-like pain located in the epigastric and suprapubic area, the pain is 7/10 at its worst. The patient states she was feeling weak, lightheaded and dizzy. The patient was seen at an urgent care and was sent to emergency department for evaluation. Patient states she did have strep throat 3 weeks prior and completed a course of amoxicillin. She was not traveled outside of the country. Related Data Home Medications ?Medication ?Instructions ?Recorded ?Confirmed lamotrigine 100 mg tablet 100 mg PO BID 12/18/23 quetiapine 50 mg tablet,extended 50 mg PO BEDTIME 12/18/23 release 24 hr quetiapine 25 mg tablet mg PO 02/23/24 Previous Rx's ?Medication ?Instructions ?Recorded famotidine 20 mg tablet 20 mg PO DAILY 14 days #14 tabs 04/12/24 ondansetron 4 mg disintegrating 4 mg PO Q8H PRN nausea and 04/12/24 tablet vomiting 3 days #9 tabs amoxicillin 500 mg tablet 500 mg PO Q12H #20 tabs 07/16/24 hydrocodone 5 mg-acetaminophen 300 1 tab PO Q6H PRN pain #14 tabs 08/03/24 mg tablet ondansetron 4 mg disintegrating 4 mg PO Q6-8H PRN nausea and 08/03/24 tablet vomiting #20 tabs Allergies Allergy/AdvReac Type Severity Reaction Status Date / Time morphine AdvReac Severe Anxiety Verified 08/03/24 17:28 latex AdvReac Hives Verified 08/03/24 17:28 trazodone AdvReac Nightmare Verified 08/03/24 17:28 Review of Systems Review of Systems: Yes all other systems are reviewed and are negative [facility] Past Medical History [facility] Narrative: Social history: She denies tobacco use. She drinks alcohol 2 to 3 times a week. She smokes marijuana occasionally Medical History Mood disorder PTSD (post-traumatic stress disorder) Social History Social History Household Members: Friend(s) Housing: House Do you presently have visiting nurse or other home services: No Alcohol intake: never Comment: pt. aware of using precaution Patient Tobacco Use Status: Former Tobacco user Tobacco use type: Cigarette and Smokeless Tobacco Cigarette Packs Per Day: 0.25 Cigarettes Per Day: 5.0 Smoked in Last 30 Days: No e-Cigarette/Vaping Use: Currently Using Second Hand Smoke Exposure: No Use of substances other than those prescribed or required for medical reasons: No Substance Use Type: Marijuana Advance Directives: No Advance Directives Information Provided: No Do you have a plan to hurt others: No Plan Patient : No service: No Sexual orientation: Straight/Heterosexual Physical Exam Vital Signs: Vital Signs: Last Vital Signs Temp 98.1 F 08/03/24 22:15 Pulse 69 08/03/24 22:15 Resp 14 08/03/24 22:15 BP 111/75 08/03/24 22:15 Pulse Ox 98 08/03/24 22:15 O2 Del Method Room Air 08/03/24 22:15 BMI result Body Mass Index 24.1 Vital signs were unremarkable. Exam: General: Awake, alert in no distress Head: Normocephalic, atraumatic EENT: PERRL, Lids normal, sclera normal, conjunctiva normal, nose normal , ears normal, throat without erythema or exudates Neck: Supple, no adenopathy Lung: breath sounds symmetric, no wheezing, rales or rhonchi Chest: symmetric movement, nontender Heart: regular rate and rhythm, normal S1, S2 no murmurs or rubs Abdomen: soft, mild to moderate epigastric tenderness, moderate suprapubic tenderness, normoactive bowel sounds, no rebound, no voluntary or involuntary guarding Back: no vertebral tenderness, no CVAT Extremities: no deformities, moves all extremities symmetrically Neuro: Awake, alert, oriented, normal speech, cranial nerves intact, moves all extremities symmetrically Psych: Pleasant, cooperative Course Reevaluation(s) Reevaluation #1: 08/03/2024DR. Stovall'sanjuana progress note: 23-year-old female I assumed care 09:00, reviews patient labs is unremarkable except for slight hypercalcemia patient received 2 L fluid while she is in the ED will repeat calcium level before she go home, patient otherwise feels better, able to tolerate p.o. intake after the medication, repeat abdominal exam shows no tenderness. Patient will be discharged with instruction of return worsening of her symptoms. Time: 23:47 Reevaluation #2: Repeat calcium is 8.1 patient can be discharged. Time: 00:44 Medications Administered Discontinued Medications Generic Name Dose Route Start Last Admin Trade Name Freq PRN Reason Stop Dose Admin Hydromorphone HCl 1 mg 08/03/24 21:52 08/03/24 22:17 Hydromorphone Hcl 1 Mg/Ml Syringe IVPUSH 08/03/24 21:53 1 mg ONCE STA Administration Protocol Sodium Chloride 1,000 mls @ 999 mls/hr 08/03/24 19:28 08/03/24 20:36 Ns IV 08/03/24 20:28 Infused .Q1H1M STA Infusion Sodium Chloride 1,000 mls @ 999 mls/hr 08/03/24 21:52 08/03/24 22:17 Ns IV 08/03/24 22:52 999 mls/hr .Q1H1M STA Administration Ketorolac Tromethamine 15 mg 08/03/24 19:28 08/03/24 19:52 Ketorolac Tromethamine 15 Mg/Ml Vial IVPUSH 08/03/24 19:29 15 mg ONCE STA Administration Ondansetron HCl 4 mg 08/03/24 19:28 08/03/24 19:53 Ondansetron Hcl 4 Mg/2 Ml Vial IVPUSH 08/03/24 19:29 4 mg ONCE ONE Administration Ondansetron HCl 4 mg 08/03/24 21:52 08/03/24 22:17 Ondansetron Hcl 4 Mg/2 Ml Vial IVPUSH 08/03/24 21:53 4 mg ONCE ONE Administration Medical Decision Making Medical Decision Making [facility] Narrative: 23-year-old female with a history of anxiety, bipolar disorder, insomnia who presents emergency department for evaluation of nausea, vomiting, diarrhea x5 days. Patient was complaining of epigastric and suprapubic pain which is 7/10 at its worst. Patient states that her diarrhea he was become black and liquidy. Patient has had no recent travel outside of the country but was on antibiotics 3 weeks prior. Patient was able to drink fluids but not able to eat food. Vital signs were normal. Physical examination revealed epigastric and suprapubic tenderness. Differential diagnosis: ?Includes but is not limited to viral syndrome, gastroenteritis, COVID-19, influenza, RSV, C difficile colitis, anemia, electrolyte abnormalities Course: 19:34 My independent interpretation patient's laboratory evaluation is as follows: CBC was normal. CMP revealed an elevated bilirubin of 1.9 otherwise unremarkable. Lipase was normal at 13. COVID-19, influenza and RSV tests were negative. Urine test was negative. Urinalysis was negative except for concentrated urine. I believe the patient's symptoms are most likely caused by a viral syndrome and I did discuss this with the patient. Patient was treated with normal saline 1 L IV, Zofran 4 mg IV and Toradol 15 mg IV. 21:51 The patient's C diff test was negative which is reassuring. The patient had some initial improvement with the above treatment but now her abdominal pain and nausea has returned. The patient was ordered to get Zofran 4 mg IV, Dilaudid 1 mg IV and a 2 L of normal saline IV. At the end of my shift, the patient's care was turned over to my colleague, Dr. Stovall for final disposition. Admission/Observation Consideration of admission/observation: Escalation of care including admission/observation considered (Yes) Lab Data [facility] Lab Attestation statement: I reviewed the patient's lab results. 08/03/24 17:34 08/03/24 17:34 Labs: Lab Results 08/03/24 08/03/24 08/03/24 Range/Units 17:34 19:03 19:44 WBC 9.1 (4.8-10.8) X10*3/uL RBC 4.65 (4.20-5.50) X10*6/uL Hgb 14.2 (12.0-16.0) g/dl Hct 41.0 (37.0-47.0) % MCV 88.2 (80.0-98.0) fL MCH 30.5 (27.0-33.0) pg MCHC 34.6 (31.0-35.0) g/dl RDW 12.2 (11.0-16.0) % Plt Count 302 D (160-400) X10*3/uL MPV 9.8 (9.4-12.3) fL Immature Gran % (Auto) 0.3 (0.0-0.4) % Neut % (Auto) 66.2 (45-73) % Lymph % (Auto) 27.1 (20-40) % Pettis % (Auto) 5.5 (2-11) % Eos % (Auto) 0.4 (0-4) % Baso % (Auto) 0.5 (0-2) % Lymph # (Auto) 2.5 (1.2-4.9) X10*3/uL Pettis # (Auto) 0.5 (0.1-1.2) X10*3/uL Eos # (Auto) 0.0 (0.0-0.4) X10*3/uL Baso # (Auto) 0.1 (0.0-0.2) X10*3/uL Abs Immat Gran (auto) 0.03 (0.00-0.03) X10*3/uL Absolute Neuts (auto) 6.0 (2.0-8.3) x10*3/uL Absolute Nucleated RBC 0.000 (0.0-0.012) X10*3/uL Nucleated RBC % (auto) 0.0 (0.0-0.2) /100WBC PT 12.1 (10.9-12.4) SEC INR 1.0 (0.9-1.1) Sodium 141 (135-145) mmol/L Potassium 3.9 (3.3-5.1) mmol/L Chloride 107 (96-108) mmol/L Carbon Dioxide 25 (22-29) mmol/L Anion Gap 13 (12-20) BUN 11 (9-16) mg/dL Creatinine 0.86 (0.5-1.4) mg/dL Estim Creat Clear Calc 79.1 Estimated GFR > 60 Random Glucose 103 (60-115) mg/dL Calcium 11.1 H D (8.4-10.2) mg/dL Total Bilirubin 1.9 H (0.0-1.0) mg/dL Direct Bilirubin 0.5 (0.0-0.5) mg/dL AST 25 (5-31) U/L ALT 16 (0-31) U/L Alkaline Phosphatase 91 (39-117) U/L Total Protein 8.0 (6.5-8.0) g/dL Albumin 5.1 H (3.5-5.0) g/dL Lipase 13 (8-78) U/L Urine Color Yellow Urine Appearance Cloudy Urine pH 7.0 (5.0-9.0) Ur Specific [place] >= 1.030 H (1.005-1.025) Urine Protein Trace (Neg-Trace) mg/dL Urine Glucose (UA) Negative (Negative) mg/dL Urine Ketones 80 (Negative) mg/dL Urine Blood Negative (Negative) Urine Nitrite Negative (Negative) Ur Leukocyte Esterase Negative (Negative) Urine Test NEGATIVE (NEGATIVE) C. difficile Tox B Gene NEGATIVE (Negative) Influenza Type A (PCR) NEGATIVE (Negative) Influenza Type B (PCR) NEGATIVE (Negative) RSV RNA Qual (PCR) NEGATIVE (Negative) SARS-CoV-2 RNA (RT-PCR) NEGATIVE (Negative) 08/04/24 Range/Units 00:14 WBC (4.8-10.8) X10*3/uL RBC (4.20-5.50) X10*6/uL Hgb (12.0-16.0) g/dl Hct (37.0-47.0) % MCV (80.0-98.0) fL MCH (27.0-33.0) pg MCHC (31.0-35.0) g/dl RDW (11.0-16.0) % Plt Count (160-400) X10*3/uL MPV (9.4-12.3) fL Immature Gran % (Auto) (0.0-0.4) % Neut % (Auto) (45-73) % Lymph % (Auto) (20-40) % [place] % (Auto) (2-11) % Eos % (Auto) (0-4) % Baso % (Auto) (0-2) % Lymph # (Auto) (1.2-4.9) X10*3/uL P[place]is # (Auto) (0.1-1.2) X10*3/uL Eos # (Auto) (0.0-0.4) X10*3/uL Baso # (Auto) (0.0-0.2) X10*3/uL Abs Immat Gran (auto) (0.00-0.03) X10*3/uL Absolute Neuts (auto) (2.0-8.3) x10*3/uL Absolute Nucleated RBC (0.0-0.012) X10*3/uL Nucleated RBC % (auto) (0.0-0.2) /100WBC PT (10.9-12.4) SEC INR (0.9-1.1) Sodium (135-145) mmol/L Potassium (3.3-5.1) mmol/L Chloride (96-108) mmol/L Carbon Dioxide (22-29) mmol/L Anion Gap (12-20) BUN (9-16) mg/dL Creatinine (0.5-1.4) mg/dL Estim Creat Clear Calc Estimated GFR Random Glucose (60-115) mg/dL Calcium 8.1 L D (8.4-10.2) mg/dL Total Bilirubin (0.0-1.0) mg/dL Direct Bilirubin (0.0-0.5) mg/dL AST (5-31) U/L ALT (0-31) U/L Alkaline Phosphatase (39-117) U/L Total Protein (6.5-8.0) g/dL Albumin (3.5-5.0) g/dL Lipase (8-78) U/L Urine Color Urine Appearance Urine pH (5.0-9.0) Ur Specific [place] (1.005-1.025) Urine Protein (Neg-Trace) mg/dL Urine Glucose (UA) (Negative) mg/dL Urine Ketones (Negative) mg/dL Urine Blood (Negative) Urine Nitrite (Negative) Ur Leukocyte Esterase (Negative) Urine Test (NEGATIVE) C. difficile Tox B Gene (Negative) Influenza Type A (PCR) (Negative) Influenza Type B (PCR) (Negative) RSV RNA Qual (PCR) (Negative) SARS-CoV-2 RNA (RT-PCR) (Negative) Prescription Management I considered prescription management with: Pain Medication (Vicodin) and Other (Antiemetic: Zofran ODT) Discharge Plan Discharge Clinical Impression: Viral syndrome, Abdominal pain, Nausea, Acute dehydration Patient Disposition: Home, Self-Care Instructions: Viral Syndrome (ED) Additional Instructions: Your blood work was unremarkable. Your C difficile test of your diarrhea was negative which is reassuring. Your symptoms are consistent with a viral infection which is causing your abdominal pain, nausea and diarrhea. Take ibuprofen 200 mg pills, 2 pills every 6 hours as needed for pain or fever. Take Tylenol (acetaminophen) 500 mg pills, 2 pills every 6 hours as needed for pain or fever. Take Zofran ODT 4 mg pills, 1 pill dissolved in your mouth every 8 hours as needed for nausea and vomiting. Prescriptions: New hydrocodone-acetaminophen 5-300 mg tablet 1 tab PO Q6H PRN (Reason: pain) Qty: 14 0RF Rx Instructions: Partial Fill upon patient request. ondansetron 4 mg tablet,disintegrating 4 mg PO Q6-8H PRN (Reason: nausea and vomiting) Qty: 20 0RF No Action lamotrigine 100 mg tablet 100 mg PO BID quetiapine 50 mg tablet extended release 24 hr 50 mg PO BEDTIME ondansetron 4 mg tablet,disintegrating 4 mg translingual ONCE Qty: 1 0RF famotidine 20 mg tablet 20 mg PO DAILY 14 Days Qty: 14 0RF ondansetron 4 mg tablet,disintegrating 4 mg PO Q8H PRN (Reason: nausea and vomiting) 3 Days Qty: 9 0RF quetiapine 25 mg tablet PO amoxicillin 500 mg tablet 500 mg PO Q12H Qty: 20 0RF Print Language: Faroese
--- OUTSIDE RECORDS SUMMARY | 2024-08-03 19:28 | XMS_ITS | Encounter Summary ---
Author Organization [facility] Address [address] [place] [address] Phone Care Team Providers Care Peanut Blancher Name Role Phone Axel Friedman MD Primary Care Provider [phone] Encounter Details Date Type Department Care Team (Late st Contact Info) Description 10/06/2014 Documentation [facility] [place] [address] [place], [place] [phone] Family Medicine, Physician [address] [place], [place] [address] Social History Tobacco Use Types Packs/Day Years [...] on filedocumented in this encounter Care Teams Peanut Blancher Relationship Specialty Start Date End Date Axel Friedman MD [address] [place] [address] [place] [address] PCP - General 12/06/16 10/17/22 documented as of this encounter
--- OUTSIDE RECORDS SUMMARY | 2024-08-03 19:28 | XMS_ITS | Encounter Summary ---
Author Organization [facility] Address [address] [place] [address] Phone Care Team Providers Care Manager Water Wastewater Name Role Phone Axel Friedman MD Primary Care Provider [phone] Encounter Details Date Type Department Care Team (Late st Contact Info) Description 06/03/2016 Documentation [facility] [place] [address] [place], [place] [phone] Family Medicine, Physician [address] [place], [place] [address] Social History Tobacco Use Types Packs/Day Years [...] filedocumented in this encounter Care Teams Manager Water Wastewater Relationship Specialty Start Date End Date Axel Friedman MD [address] [place] [address] [place] [address] PCP - General 12/06/16 10/17/22 documented as of this encounter
--- OUTSIDE RECORDS SUMMARY | 2024-08-03 19:28 | XMS_ITS | Encounter Summary ---
Author Organization [facility] Address [address] [place] [address] Phone Care Team Providers Care Retail And Restaurant Name Role Phone Axel Friedman MD Primary Care Provider Encounter Details Date Type Department Care Team (Late st Contact Info) Description 08/01/2009 Documentation [facility] [place] [address] [place], [place] [phone] Family Medicine, Physician [address] [place], [place] [address] Social History Tobacco Use Types Packs/Day Years [...] on filedocumented in this encounter Care Teams Retail And Restaurant Relationship Specialty Start Date End Date Axel Friedman MD [address] [place] [address] [place] [address] PCP - General 12/06/16 10/17/22 documented as of this encounter
--- OUTSIDE RECORDS SUMMARY | 2024-08-03 19:28 | XMS_ITS | Encounter Summary ---
Author Organization [facility] Address [address] [place] [address] Phone Care Team Providers Care Draw End Hand Name Role Phone Axel Friedman MD Primary Care Provider [phone] Encounter Details Date Type Department Care Team (Late st Contact Info) Description 08/27/2016 Documentation [facility] [place] [address] [place], [place] [phone] Family Medicine, Physician [address] [place], [place] [address] Social History Tobacco Use Types Packs/Day Years [...] on filedocumented in this encounter Care Teams Draw End Hand Relationship Specialty Start Date End Date Axel Friedman MD [address] [place] [address] [place] [address] PCP - General 12/06/16 10/17/22 documented as of this encounter
--- OUTSIDE RECORDS SUMMARY | 2024-08-03 19:28 | XMS_ITS | Encounter Summary ---
Author Organization [facility] Address [address] [place] [address] Phone Care Team Providers Care Aviation Safety Equipment Technician Name Role Phone Axel Friedman MD Primary Care Provider [phone] Encounter Details Date Type Department Care Team (Late st Contact Info) Description 07/31/[address] [facility] [place] [address] [place], [place] [phone] Family Medicine, Physician [address] [place], [place] [address] Social History Tobacco Use Types Packs/Day Years [...] on filedocumented in this encounter Care Teams Aviation Safety Equipment Technician Relationship Specialty Start Date End Date Axel Friedman MD [address] [place] [address] [place] [address] PCP - General 12/06/16 10/17/22 documented as of this encounter
[2024-08-03] MEDS: 0.9 % Sodium Chloride 1,000 ML 999 ML IV ×2 (19:35→22:17)
[2024-08-03] MEDS: Ketorolac Tromethamine 15 MG/ML VIAL IVPUSH (19:52)
[2024-08-03] MEDS: ondansetron HCL 4 MG/2 ML VIAL IVPUSH ×2 (19:53→22:17)
[2024-08-03 20:04] VITALS: BP 123/77; PULSE 77; RESP 18; O2SAT 98
[2024-08-03 20:37] LABS: CDiff Gene PCR NEGATIVE (Negative)
[2024-08-03 20:56] VITALS: BP 120/74; PULSE 89; RESP 18; TEMP 36.6; O2SAT 100
[2024-08-03 22:15] VITALS: BP 111/75; PULSE 69; RESP 14; TEMP 36.7; O2SAT 98
[2024-08-03] MEDS: HYDROmorphone HCl 1 MG/ML SYRINGE IVPUSH (22:17)
[2024-08-04 00:30] LABS: Calcium 8.1 mg/dL (8.4-10.2)
[2024-08-04 01:48] VITALS: BP 111/75; PULSE 69; RESP 14; TEMP 36.7; O2SAT 100
[2024-08-04 01:58] VITALS: BP 111/75; PULSE 69; RESP 14; TEMP 36.7; O2SAT 100
== END 2024-08-04 01:58 | disposition home or self-care (01) ==
PROVIDERS: Emergency Medicine Emergency Medical Services; Emergency Provider Emergency Medicine
DX: B34.9 Viral infection, unspecified (principal); R11.2 Nausea with vomiting, unspecified; R10.9 Unspecified abdominal pain; E86.0 Dehydration; Z03.818 Encounter for observation for suspected exposure to other biological agents ruled out; Z87.891 Personal history of nicotine dependence
CPT/HCPCS: 0241U; 36415; 80048; 80076; 81003; 81025; 82310; 83690; 85025; 85610; 87493; 96361; 96374; 96375; 96376; 99284; 99285; J1171; J1885; J2405